=== PATIENT | male | born 1945 | race Caucasian/White ===

== ENCOUNTER 2022-07-11 07:10 | Observation (INO) ==
--- NOTE | 2022-05-29 16:28 | PAT Medication Instructions ---
Medication Instructions Date of Service May 29, 2022 Home Medications allopurinol 300 mg tablet 300 mg PO HS ascorbic acid (vitamin C) 500 mg tablet,extended release (Vitamin C ER) 500 mg PO QAM aspirin 81 mg tablet,delayed release 81 mg PO QAM cholecalciferol (vitamin D3) 25 mcg (1,000 unit) tablet (Vitamin D3) 25 mcg PO QAM coenzyme Q10 100 mg capsule (Co Q-10) 100 mg PO QAM cyanocobalamin (vitamin B-12) 500 mcg tablet 500 mcg PO QAM garlic 1,000 mg capsule 1,000 mg PO QAM djudejgitte-nirygbwzb-aoa C-Mn 500 mg-400 mg capsule (Glucosamine Chondroitin Maximum Strength) 1 cap PO QAM lactobacillus combination no.4 3 billion cell capsule (Probiotic) 3,000 mmu cells PO QAM lisinopril 40 mg tablet 40 mg PO HS metformin 500 mg tablet 500 mg PO BID metoprolol succinate 25 mg tablet,extended release 24 hr 25 mg PO QAM omega-3 fatty acids-fish oil 684 mg-1,200 mg capsule,delayed release 1 cap PO QAM simvastatin 40 mg tablet 40 mg PO HS zinc 25 mg tablet 25 mg PO QAM STOP taking 2 weeks before surgery coenzyme Q10 100 mg capsule (Co Q-10) 100 mg PO QAM garlic 1,000 mg capsule 1,000 mg PO QAM uiitrmllweh-plykrpdun-zyr C-Mn 500 mg-400 mg capsule (Glucosamine Chondroitin Maximum Strength) 1 cap PO QAM omega-3 fatty acids-fish oil 684 mg-1,200 mg capsule,delayed release 1 cap PO QAM DO NOT take the morning of surgery ascorbic acid (vitamin C) 500 mg tablet,extended release (Vitamin C ER) 500 mg PO QAM cholecalciferol (vitamin D3) 25 mcg (1,000 unit) tablet (Vitamin D3) 25 mcg PO QAM cyanocobalamin (vitamin B-12) 500 mcg tablet 500 mcg PO QAM lactobacillus combination no.4 3 billion cell capsule (Probiotic) 3,000 mmu cells PO QAM metformin 500 mg tablet 500 mg PO BID zinc 25 mg tablet 25 mg PO QAM Take morning of surgery With a small sip of water, OTHERWISE NOTHING TO EAT OR DRINK AFTER MIDNIGHT: aspirin 81 mg tablet,delayed release 81 mg PO QAM (unless directed otherwise by surgeon) metoprolol succinate 25 mg tablet,extended release 24 hr 25 mg PO QAM Take evening before surgery allopurinol 300 mg tablet 300 mg PO HS lisinopril 40 mg tablet 40 mg PO HS metformin 500 mg tablet 500 mg PO BID simvastatin 40 mg tablet 40 mg PO HS Other Notes If you have any questions please call us at [phone] or [phone] or [phone] or [phone]
--- NOTE | 2022-06-02 11:04 | Anesthesiology Consultation ---
Date of Service June 02, 2022 Assessment & Plan (1) Encounter for pre-operative examination: - check BSG am DOS. - awaiting PCP pre-op evaluation, [facility] 06/29. - awaiting cardiology pre-op evaluation, [facility] 07/04. Chart Review Chart Review: Pending: Refer to Additional Notes / Consult section and Patient seen in Pre Admission Testing Teaching & Discussion Pre-Anesthesia Teaching/Discussion Notes: Instructed NPO after midnight before surgery, except medications with 15 cc of water. Medication instructions provided according to the PAT guidelines. History Surgery Operation Date: 07/11/22 11:00 Proposed Procedures p Left Total Knee Arthroplasty - Michael Flor DO Height/Weight Height: 5 ft 9 in Weight: 92.986 kg Allergies Allergy/AdvReac Type Severity Reaction Status Date / Time chlorhexidine Allergy Unknown rash Verified 05/29/22 13:59 omeprazole Allergy Unknown itch Verified 05/29/22 13:59 Medications Home Medications Medication Instructions Recorded Confirmed Last Taken allopurinol 300 mg tablet 300 mg PO HS 05/29/22 05/29/22 Unknown ascorbic acid (vitamin C) 500 mg 500 mg PO QAM 05/29/22 05/29/22 Unknown tablet,extended release (Vitamin C ER) aspirin 81 mg tablet,delayed 81 mg PO QAM 05/29/22 05/29/22 Unknown release cholecalciferol (vitamin D3) 25 25 mcg PO QAM 05/29/22 05/29/22 Unknown mcg (1,000 unit) tablet (Vitamin D3) coenzyme Q10 100 mg capsule (Co 100 mg PO QAM 05/29/22 05/29/22 Unknown Q-10) cyanocobalamin (vitamin B-12) 500 500 mcg PO QAM 05/29/22 05/29/22 Unknown mcg tablet garlic 1,000 mg capsule 1,000 mg PO QAM 05/29/22 05/29/22 Unknown qesvdyovwra-tvtwqdgfz-baf C-Mn 500 1 cap PO QAM 05/29/22 05/29/22 Unknown mg-400 mg capsule (Glucosamine Chondroitin Maximum Strength) lactobacillus combination no.4 3 3,000 mmu cells PO QAM 05/29/22 05/29/22 Unknown billion cell capsule (Probiotic) lisinopril 40 mg tablet 40 mg PO HS 05/29/22 05/29/22 Unknown metformin 500 mg tablet 500 mg PO BID 05/29/22 05/29/22 Unknown metoprolol succinate 25 mg 25 mg PO QAM 05/29/22 05/29/22 Unknown tablet,extended release 24 hr omega-3 fatty acids-fish oil 684 1 cap PO QAM 05/29/22 05/29/22 Unknown mg-1,200 mg capsule,delayed release simvastatin 40 mg tablet 40 mg PO HS 05/29/22 05/29/22 Unknown zinc 25 mg tablet 25 mg PO QAM 05/29/22 05/29/22 Unknown Past Medical History Medical History (Updated 06/02/22 @ 11:10 by Danielle Raines PA-C) CAD (coronary artery disease) s/p 1 stent in 2011, follows with [facility] Diabetes mellitus, type 2 NIDDM Diverticular disease h/o diverticulitis last episode 2 yrs ago History of skin cancer L forearm and L side of neck, BCC and SCC, removed Hx of gout Hyperlipidemia Hypertension controlled, stable per pt Patient denies h/o stroke, seizures, heart failure, blood clots or blood transfusions. Exercise / Class Metabolic Activity II 4-5 Yardwork/Stairs/Walk up hill (denies CP or SOB with 1 FOS) Past Family History Family History (Updated 05/29/22 @ 14:10 by Hemalatha Collier RN) Mother Diabetes Past Surgical History Surgical History (Updated 05/29/22 @ 14:09 by Hemalatha Collier RN) History of appendectomy History of colonoscopy History of heart artery stent January 2012 > 1 stent History of tooth extraction Hx of inguinal hernia repair bilat Hx of umbilical hernia repair Past Anesthesia History No Hx of Anesthesia Complications and No Family Hx of Anesthesia Complications History of PONV No Hx of Motion Sickness and History of PONV (isolated episode, denies needing scop patch) Social History Smoking Status: Former smoker Do You Dip or Chew Tobacco: No Smoking End Date: 1979 Hx Alcohol Use: Yes alcohol intake frequency: holidays/special occasions only Hx Substance Use: No substance use type: does not use Review of Systems Occasional snoring, denies witnessed apneas. Occasional cough occasionally productive of clear mucus, ongoing over 1 yr ago, denies change or worsening, follows with PCP. Denies blood tinged sputum or hemoptysis, denied change or worsening. Patient denies chest pain, shortness of breath, dyspnea on exertion, reflux, fever, chills, wheezing, or palpitations. Physical Exam Vital Signs Vitals BP 153/81 P 72 TEMP 99.1 SP02 97% on RA RESP 18 Physical Full cervical extension range of motion without pain TMD 3.5 finger breadths Mallampati Score 2 Dentition: intact, several caps, several bridges-one upper front and another upper left side, implants upper left side; denies chipped or loose teeth Lungs: normal respiratory effort. Clear throughout to auscultation, no adventitious breath sounds Cardiac: regular rate and rhythm, no murmurs noted Carotid arteries: negative bruit bilat Lab Results Anesthesia Preop Results Results Anesthesia Widget: WBC 7.36 K/ul (4.8-10.8) 06/02/22 Hgb 15.5 g/dl (14.0-18.0) 06/02/22 Hct 47.6 % (40.1-51.0) 06/02/22 Plt 209 K/uL (130-400) 06/02/22 Na 140 mmol/L (136-145) 06/02/22 K 4.7 mmol/L (3.5-5.1) 06/02/22 Cl 103 mmol/L (98-107) 06/02/22 CO2 30 mmol/L (21-32) 06/02/22 BUN 14 mg/dl (6-23) 06/02/22 Creat 1.01 mg/dl (0.6-1.4) 06/02/22 Glucose Level 202 mg/dl (70-99(Fasting)) H 06/02/22 PT 11.1 Seconds (9.0-12.0) 06/02/22 PTT 27.9 Seconds (21.0-31.0) 06/02/22 INR 1.0 (0.9-1.1) 06/02/22 Urine Color Yellow 06/02/22 Urine Appearance Clear (Clear) 06/02/22 Urine pH 5.0 (4.5-7.5) 06/02/22 Urine Specific [place] 1.015 (1.000-1.030) 06/02/22 Urine Protein Negative (Negative) 06/02/22 Urine Glucose (UA) Negative (Negative) 06/02/22 Urine Ketones Negative (Negative) 06/02/22 Urine Blood 1+ (Negative) H 06/02/22 Urine Nitrite Negative (Negative) 06/02/22 Urine Bilirubin Negative (Negative) 06/02/22 Urine Urobilinogen Negative (Negative) 06/02/22 Urine Leukocyte Esterase Negative (Negative) 06/02/22 Urine WBC (Auto) 1-5 /hpf (0-5) 06/02/22 Urine RBC (Auto) 0-4 /hpf (0-4) 06/02/22 Urine Hyaline Casts (Auto) 0 /lpf (0-5) 06/02/22 Urine Epithelial Cells (Auto) 0-5 /lpf (0-5) 06/02/22 Urine Bacteria (Auto) Negative (Negative) 06/02/22 Blood Type B Negative 06/02/22 Antibody Screen NEGATIVE 06/02/22 Testing Laboratory Results A1c 05/26/22: 6.8% Electrocardiogram Date: 06/02/22 NSR, rate 63 bpm Chest X-Ray Date: 06/02/22 Lung volumes are normal. Lungs are clear. There is no pneumothorax or pleural effusion. Cardiac size is normal. Mediastinal contours are normal. There is no evidence for pulmonary edema. IMPRESSION: No acute cardiopulmonary findings. Stress Test Date: 05/15/22 Dobutamine MPHR 123% Negative for inducible ischemia EF 55-59% No significant valvular disease COVID-19 Risk Screen Screening Information COVID-19 Screen Date: 06/02/22 Exposure 21 Days Family/Household +COVID Last 21 Days: No Exposure 10 Days Any COVID Exposure Last 10 Days: No Symptoms Last 10 Days Experienced COVID Sx Last 10 Days: No + COVID 0-90 Days COVID + in Last 0-90 Days: No
--- NOTE | 2022-06-20 09:08 | History & Physical Report ---
Date of Service June 20, 2022 date of surgery: 07/11/22 Procedure: Left Total Knee Arthroplasty Surgeon: Michael Flor Assessment & Plan (1) Arthritis of knee, left: Plan: Risks and benefits of procedure discussed in detail today, patient would like to proceed with a Left total knee replacement at [facility] as scheduled. will obtain medical clearance prior to surgery as well as obtain PATs at [facility]. Will place on ASA 81mg po bid x 1 month post op, f/u 2 weeks post op for routine post-operative care and x-ray, sooner if having any problems. will make arrangements for HHPT at the time of discharge. At this point in time, has failed conservative measures and would like to proceed with surgical intervention. The risks and benefits have been discussed including, but not limited to, risk of infection, nerve injury, stiffness, loss of motion, failure to improve, etc. Reasonable outcomes and options of treatment were discussed. An explanation of appropriate alternatives to the procedure that may be advantageous were discussed and their risks and benefits, as well as the risks and benefits of not proceeding with treatment. I offered to answer any additional inquiries concerning the treatment involved. All the patient's questions were answered. The patient is agreeable, understanding of the treatment plan and alternatives, and wishes to proceed with the treatment plan. History of Present Illness Chief Complaint: left knee pain Primary Care Provider: Lisandro Yao MD Jayden is a pleasant 76-year-old male presents for preop evaluation prior to his left total knee replacement. He has been having pain in his knee for many years now which is gradually worsened, is now affecting his daily activities including walking standing using stairs. He has tried and failed previous cortisone injection as well as viscosupplementation without relief. He is also tried oral anti-inflammatory including ibuprofen and Motrin as well as meloxicam. At this point time is failed conservative measures like to proceed with left total knee replacement Allergies Allergy/AdvReac Type Severity Reaction Status Date / Time chlorhexidine Allergy Unknown rash Verified 05/29/22 13:59 omeprazole Allergy Unknown itch Verified 05/29/22 13:59 Home Medications Medication Instructions Recorded Confirmed Type allopurinol 300 mg tablet 300 mg PO HS 05/29/22 05/29/22 History ascorbic acid (vitamin C) 500 mg 500 mg PO QAM 05/29/22 05/29/22 History tablet,extended release (Vitamin C ER) aspirin 81 mg tablet,delayed 81 mg PO QAM 05/29/22 05/29/22 History release cholecalciferol (vitamin D3) 25 25 mcg PO QAM 05/29/22 05/29/22 History mcg (1,000 unit) tablet (Vitamin D3) coenzyme Q10 100 mg capsule (Co 100 mg PO QAM 05/29/22 05/29/22 History Q-10) cyanocobalamin (vitamin B-12) 500 500 mcg PO QAM 05/29/22 05/29/22 History mcg tablet garlic 1,000 mg capsule 1,000 mg PO QAM 05/29/22 05/29/22 History yxqkzqoarbi-djrkoiuuf-twl C-Mn 500 1 cap PO QAM 05/29/22 05/29/22 History mg-400 mg capsule (Glucosamine Chondroitin Maximum Strength) lactobacillus combination no.4 3 3,000 mmu cells PO QAM 05/29/22 05/29/22 History billion cell capsule (Probiotic) lisinopril 40 mg tablet 40 mg PO HS 05/29/22 05/29/22 History metformin 500 mg tablet 500 mg PO BID 05/29/22 05/29/22 History metoprolol succinate 25 mg 25 mg PO QAM 05/29/22 05/29/22 History tablet,extended release 24 hr omega-3 fatty acids-fish oil 684 1 cap PO QAM 05/29/22 05/29/22 History mg-1,200 mg capsule,delayed release simvastatin 40 mg tablet 40 mg PO HS 05/29/22 05/29/22 History zinc 25 mg tablet 25 mg PO QAM 05/29/22 05/29/22 History Past Med/Surg History Medical History CAD (coronary artery disease) s/p 1 stent in 2011, follows with [facility] cardiology Diabetes mellitus, type 2 NIDDM Diverticular disease h/o diverticulitis last episode 2 yrs ago History of skin cancer L forearm and L side of neck, BCC and SCC, removed Hx of gout Hyperlipidemia Hypertension controlled, stable per pt Surgical History History of appendectomy History of colonoscopy History of heart artery stent January 2012 > 1 stent History of tooth extraction Hx of inguinal hernia repair bilat Hx of umbilical hernia repair Family History Mother Diabetes Social History Smoking Status: Former smoker Second Hand Exposure: No; Hx Alcohol Use: Yes Hx Substance Use: No Preferred Language: Niuean Communication Ability: Effective Chief Maintenance Supervisor Required: No Beliefs That Will Affect Care: None Current Living Situation: Spouse Feels Safe at Home: Yes Assistive Devices: Glasses Review of Systems Review of Systems: All systems reviewed & are unremarkable except as noted in HPI & below Constitutional: no fever, no chills and no sweats Respiratory: no cough and no dyspnea Cardiovascular: no chest pain, no dyspnea and no orthopnea Gastrointestinal: no abdominal pain, no nausea and no vomiting Musculoskeletal: as per Subjective / HPI Physical Exam Physical Exam: HT: 5ft 9in WT: 93.8kg Constitutional: WD/WN, vitals as above no acute distress Respiratory: normal respiratory effort, lungs clear to auscultation no respiratory distress, no labored breathing and does not use accessory muscles Cardiovascular: RRR, no murmur, no edema Gastrointestinal (Abdomen): normal bowel sounds, soft, nontender, no hepatosplenomegaly Musculoskeletal: Knee: + knee abnormal to inspection (Left Knee: ), + effusion (+1 effusion), + limited ROM of knee (ROM 0/3/110), + knee ROM with crepitation, + joint line tenderness (medial joint line) and + Aleksandar's sign positive; no deformity, no skin erythema, no ecchymosis, no valgus laxity, no varus laxity, anterior drawer test negative, [place]'s sign negative and pivot shift test negative Results & Data Results & Data ([facility]) Diagnostic Findings Left Knee X-ray: left knee series confirm advanced degenerative changes to the left knee, greatest medial compartments and patellofemoral joint, showing joint space narrowing, osteophyte formation and subchondral sclerosis. no acute bony pathology noted.
[~2022-07-11 07:10] MED LIST: ACETAMINOPHEN 500 MG TAB PO SCH; BUPIVACAINE 0.5 % 5 MG/1 ML PF 10ML VIAL ONE; CeleBREX 200 MG CAP PO SCH; FAMOTIDINE 20 MG TAB PO SCH; GABAPENTIN 300 MG CAP PO SCH; LR 500ML BOLUS, THEN 15ML/HR IV SCH; METOCLOPRAMIDE HCL 10 MG TABLET PO SCH; ROPIVACAINE 0.5% 5 MG/ML 30 ML VIAL ONE; ROPIVACAINE 0.5% HCL/PF 150 MG, BUPIVACAINE 0.75% MPF 20 ML, EPINEPHrine 30MG/30ML (OR ... INFIL SCH; TRANEXAMIC ACID 1,000 MG **IV Intra-op IV SCH; TRANEXAMIC ACID 1,000 MG **IV Pre-op IV SCH; ceFAZolin 2000MG 2,000 MG/15 ML SYR IV SCH; dexAMETHasone 4 MG TAB PO SCH
--- NOTE | 2022-07-11 08:41 | History & Physical Bridge Note ---
Date of Service July 11, 2022 History & Physical Bridge Note I have examined the patient, reviewed the History & Physical and in the interval since the performance of the History & Physical I have noted the following changes of clinical significance: no changes noted
[2022-07-11] MEDS ORDERED: MIDAZOLAM HCL 1 MG/ML 2ML VIAL ONE (08:53)
[2022-07-11] MEDS ORDERED: LIDOCAINE 2% MPF LOCAL 5 ML VIAL INFIL ONE (09:19)
[2022-07-11] MEDS ORDERED: PROPOFOL IV EMULSION 10 MG/ML 20 ML VIAL IV ONE (09:19)
[2022-07-11] MEDS ORDERED: ORTHO JOINT ANESTHETIC ONE (09:26)
[2022-07-11] MEDS ORDERED: ePHEDrine sulfate 50 MG/ML AMP IV PRN (09:34)
[2022-07-11] MEDS ORDERED: ATROPINE SULFATE 0.1 MG/ML 10ML SYR IV PRN (09:34)
[2022-07-11] MEDS ORDERED: ONDANSETRON INJ 2 MG/ML 2 ML VIAL IV PRN ×2 (09:34→14:14)
[2022-07-11] MEDS ORDERED: HYDROmorphone INJ 1 MG/ML SYRINGE IV PRN (09:34)
[2022-07-11] MEDS ORDERED: KETAMINE 50 MG/5 ML SYRINGE ONE (10:08)
--- NOTE | 2022-07-11 10:56 | Operative Report ---
Post Operative Report Pre & Post Diagnosis Operation Date: 07/11/22 09:25 Pre-Op Diagnosis: Arthritis Left Knee Post-Op Diagnosis: Arthritis Left Knee I identified the patient and participated in the time-out.: Yes Procedure Operation Date: 07/11/22 09:25 Actual Procedures p Left Total Knee Arthroplasty(Left) utilizing [employer] journey 2 patient matched total knee arthroplasty size femur 6 tibia 5 polyten patella 32 barney- Michael Flor DO Surgeon Michael Flor DO [employer] Automation Engineer Timur GODWIN Estimated Blood Loss 5 Findings Consistent with Post-Op Diagnosis Patient presents with ongoing complaints of pain about the left knee with a severe end-stage tricompartmental degenerative joint disease varus alignment subchondral sclerosis marginal osteophytes subchondral cystic changes moderate to large effusion Specimens Bone and cartilage Drains Medium bore Hemovac Anesthesia Type MAC Spinal Regional Complications none Disposition Accompanied Patient To Recovery: No Disposition: Recovery Room Indications Patient presents with severe end-stage DJD left knee after failed attempted conservative management clinic physical therapy anti-inflammatories relative rest activity modification corticosteroid injection viscosupplementation the above intraoperative findings noted Description of Procedure After proper prepping and draping of the left lower extremity anterior midline incision was made over the region of the extensor extensor mechanism after meticulous hemostasis was obtained and maintained in subcutaneous tissues a medial parapatellar incision was made The patella was subluxed lateralward the medial lateral gutter were cleaned from any hypertrophic synovitis and scar tissue of the distal femoral block was placed and the distal femoral osteotomy cut was made subsequently the chamfers anterior and posterior osteotomy cuts were made utilizing the 4-in-1 block the tibia was subsequently subluxed anteriorward medial and ateral meniscal remnants were excised in their entirety remnants of the anterior and posterior cruciate ligaments were excised in their entirety excellent exposure of the proximal tibia was obtained the tibial osteotomy guide was placed on the proximal tibial osteotomy cut was made once again the knee was irrigated with copious amounts of sterile saline solution the patella was subsequently everted lateralward thickened scar tissue around the patella was removed the patella was subsequently cut utilizing a freehand technique and was drilled prepared for final preparation and placement of patella socially flexion-extension gaps were checked and the equal and symmetric trials were placed to the appropriate femoral and tibial trials with poly-spacer being placed for equal flexion and extension gaps and full range of motion including extension to 0 and flexion to 140 the trial components after having been taken to recovery range of motion was subsequently removed meticulous hemostasis was obtained and maintained subsequently a knee block injection of joint cocktail including ropivacaine 0.5% 150 mg. Bupivacaine 0.5% epinephrine 1-200,030 mL's toradol 30 mg dexamethasone 4 mg ketamine 10 mg clonidine 100 micrograms normal saline solution 30 mg was infiltrated into the soft tissues of the posterior knee medial lateral gutters and periosteal synovium special attention was paid to protect neurovascular structures at all times subsequently trial components having been removed the knee was irrigated with sterile saline solution. debris was removed the proximal tibia was subsequently prepared and was made ready for the placement of the tibial component tibial component was also cemented and tamped into position the femoral component was subsequently placed and cemented in the position the patellar component was subsequently cemented in position because hemostasis once again obtained and maintained wound having been thoroughly irrigated with debridement and debridement lavage was performed as well as a medial parapatellar incision closed with #1 Vicryl in interrupted fashion subcutaneous was closed with #2 Vicryl skin was closed with skin clips. PA-C was necessary for prepping and drapping as well as wound closure of deep fascia Sub cutaneous tissue and skin and was necessary for the case. A sterile compressive dressing was placed patient was taken to recovery in stable condition of report dictated by Chacho I attest to the content of the Intraoperative Record and any orders documented therein. Any exceptions are noted below.Due to the complex nature of the procedure, the entire surgery was performed with the operational assistance of Timur GODWIN. The food trades assistants, under direct supervision, was involved in the actual performance of all aspects of the surgical procedure including hemostasis, tissue retraction and incision, instrument management, patient positioning, and wound closure. I attest to the content of the Intraoperative Record and any orders documented therein. Any exceptions are noted below.
--- NOTE | 2022-07-11 12:37 | XRay Report ---
LEFT KNEE 2 VIEWS History: Left total knee arthroplasty. Degenerative arthritis. Postop. FINDINGS: The patient is status post a left total knee arthroplasty. The hardware is intact. No fract ure or dislocation. Surgical drains are in place. IMPRESSION: Left total knee arthroplasty. No evidence for hardware complication. ACT 112: Negative or not required by law. Electronically signed by: Karan Tate M.D. 07/11/2022 12:36 PM
--- NOTE | 2022-07-11 13:12 | Anesthesiology Progress Note ---
Date of Service July 11, 2022 Anesthesia Post Procedure Vital Signs Vital Signs: Temp Pulse Resp BP Pulse Ox O2 Del Method O2 Flow Rate 07/11/22 13:00 76 17 117/74 93 Room Air 07/11/22 12:30 66 16 113/71 93 Room Air 07/11/22 12:20 36.2 C L 74 18 126/73 93 Room Air 07/11/22 12:10 73 15 124/67 96 Room Air 07/11/22 12:00 78 18 125/70 96 Oxymask 5 07/11/22 11:50 78 15 118/70 96 Oxymask 5 07/11/22 11:43 36.1 C L 84 12 120/68 97 Oxymask 9 07/11/22 07:53 37.0 C 71 20 142/71 H 97 Room Air Transfer of Care Handoff Completed per policy Notes Mental Status: alert / awake / arousable Patient Amnestic to Procedure: Yes Nausea / Vomiting: adequately controlled Pain: adequately controlled Airway Patency, RR, SpO2: stable & adequate BP & HR: stable & adequate Hydration State: stable & adequate Neuraxial Anesthesia: was administered and sensory block is resolving Anesthetic Complications: no major complications apparent
[2022-07-11] MEDS ORDERED: bisacodyL 10 MG SUPP PR PRN (14:14)
[2022-07-11] MEDS ORDERED: NALOXONE HCL 0.4 MG/1 ML VIAL/CARP IV PRN (14:14)
[2022-07-11] MEDS ORDERED: HYDROmorphone INJ 0.5 MG/0.5 ML SYR IV PRN (14:14)
[2022-07-11] MEDS ORDERED: diphenhydrAMINE 50 MG/ML VIAL IV PRN (14:14)
[2022-07-11] MEDS ORDERED: MAGNESIUM HYDROXIDE SUSP 30 ML UDC PO PRN (14:14)
[2022-07-11] MEDS ORDERED: oxyCODONE HCL IR 5 MG TAB (IMMEDIATE RELEASE) PO PRN (14:14)
[2022-07-11] MEDS ORDERED: PHARMACY GLYCEMIC MGMT CONSULT PRN (14:14)
[2022-07-11] MEDS: SODIUM CHLORIDE 0.9% 1000ML 1,000 ML IV SCH (14:34)
[2022-07-11] MEDS: ACETAMINOPHEN 500 MG TAB PO SCH ×2 (14:55→21:42)
[2022-07-11] MEDS ORDERED: DEXTROSE 50% 50 ML SYRINGE IV PRN (15:00)
[2022-07-11] MEDS ORDERED: GLUCOSE 10 TAB/TUBE PO PRN (15:00)
[2022-07-11] MEDS ORDERED: GLUCAGON FOR INJ 1 MG VIAL IM PRN (15:00)
[2022-07-11] MEDS ORDERED: CARBOHYDRATES FOR HYPOGLYCEMIA PO PRN (15:00)
[2022-07-11] MEDS ORDERED: GLUCOSE 40% GEL 15 GM TUBE PO PRN (15:00)
--- NOTE | 2022-07-11 15:16 | Hospitalist Consultation ---
Date of Consultation July 11, 2022 Assessment & Plan (1) Status post total left knee replacement: - Pain management, bowel regimen and DVT ppx per the primary team - PT/OT consults, pt is planning on outpatient therapy with home therapy twice weekly after discharge - Follow am CBC to monitor for acute blood loss, last Hgb was 15.5 (2) CAD (coronary artery disease): (3) Hyperlipidemia: (4) Hypertension: - May continue metoprolol succinate 25 mg PO daily, HOLD lisinopril 40 mg due to borderline BP, resume when able - cont asa 81 mg (5) Diabetes mellitus, type 2: - ISS with accuchecks achs, glycemic pharmacy consulted for assistance - Last A1C was 6.8 on 05/26/22 - HH/DM diet allowed DVT ppx: - teds, scds, aspirin 81 BID as per the primary team CODE: FULL Dispo: From home. Thank you for involving us in the care of Mr. Hardwick. Please do not hesitate to call with questions or concerns. At this time medicine service will follow along. Supervising Physician Co-Signing Physician Notes Pt is a 76 y/o M with hx of CAD s/p stent, HTN, DMII, Gout admitted for L TKA -Pt underwent L TKA on 07/11/22 PE: NAD, well developed Lungs: CTA, no wheezing or crackles Cardiac: Normal S1/S2, no murmur Abd: NT, ND, soft MSK: able to move his toes Psych: AAOx3, normal affect A/P: L TKA: -POD # 0 -pt is recovering well -VSS -pain management per ortho -OT/PT -monitor cbc and BMP HTN: -Bp is at low normal range thus will hold Lisinopril but continue metoprolol DMII: -hold oral meds -ISS Other chronic conditions: plan as above Agree with A/P by Aminata Parra PA-C History of Present Illness Reason for Consultation: Post op med management Requesting Physician: Dr. Flor Attending Physician: Michael Flor DO History of Present Illness This is a 76 yo M with PMHx of CAD s/p CABG x 2 vessel in January 2021, LA planement to LAD, HTN, HLD, NIDDM, who presented for elective Left knee arthroplasty by Dr. Flor. Pt reports surgery went well. He does not have full function to wiggle his toes on the left yet, and states dullness to light touch on his foot is present. No pain currently. Last bowel movement was yesterday at 6:30 PM. He has not yet urinated status post surgery. Patient has tolerated lunch without any difficulty, no abdominal complaints, nausea, vomiting. Lovely, is present at beside. Educated the patient on not taking his home medications while here, we will use medications from her pharmacy and he expressed understanding. Patient anticipates going home within 1 to 2 days with home health therapy twice a week. Allergies Allergy/AdvReac Type Severity Reaction Status Date / Time omeprazole Allergy Mild itch Verified 07/11/22 07:49 chlorhexidine Allergy Unknown rash Verified 07/11/22 07:49 Home Medications Medication Instructions Recorded Confirmed Type allopurinol 300 mg tablet 300 mg PO HS 05/29/22 07/11/22 History ascorbic acid (vitamin C) 500 mg 500 mg PO QAM 05/29/22 07/11/22 History tablet,extended release (Vitamin C ER) aspirin 81 mg tablet,delayed 81 mg PO QAM 05/29/22 07/11/22 History release cholecalciferol (vitamin D3) 25 25 mcg PO QAM 05/29/22 07/11/22 History mcg (1,000 unit) tablet (Vitamin D3) coenzyme Q10 100 mg capsule (Co 100 mg PO QAM 05/29/22 07/11/22 History Q-10) cyanocobalamin (vitamin B-12) 500 500 mcg PO QAM 05/29/22 07/11/22 History mcg tablet garlic 1,000 mg capsule 1,000 mg PO QAM 05/29/22 07/11/22 History royrhgoakvs-lbtcqkoua-czo C-Mn 500 1 cap PO QAM 05/29/22 07/11/22 History mg-400 mg capsule (Glucosamine Chondroitin Maximum Strength) lactobacillus combination no.4 3 3,000 mmu cells PO QAM 05/29/22 07/11/22 History billion cell capsule (Probiotic) lisinopril 40 mg tablet 40 mg PO HS 05/29/22 07/11/22 History metformin 500 mg tablet 500 mg PO BID 05/29/22 07/11/22 History metoprolol succinate 25 mg 25 mg PO QAM 05/29/22 07/11/22 History tablet,extended release 24 hr omega-3 fatty acids-fish oil 684 1 cap PO QAM 05/29/22 07/11/22 History mg-1,200 mg capsule,delayed release simvastatin 40 mg tablet 40 mg PO HS 05/29/22 07/11/22 History zinc 25 mg tablet 25 mg PO QAM 05/29/22 07/11/22 History Patient History Medical History (Updated 07/11/22 @ 15:15 by Aminata Parra PA-C) CAD (coronary artery disease) s/p 1 stent in 2011, follows with [facility] cardiology Diabetes mellitus, type 2 NIDDM Diverticular disease h/o diverticulitis last episode 2 yrs ago History of skin cancer L forearm and L side of neck, BCC and SCC, removed Hx of gout Hyperlipidemia Hypertension controlled, stable per pt Surgical History (Updated 07/11/22 @ 15:15 by Aminata Parra PA-C) History of appendectomy History of colonoscopy History of heart artery stent January 2012 > 1 stent History of tooth extraction Hx of inguinal hernia repair bilat Hx of umbilical hernia repair Family History Mother Diabetes Social History Smoking Status: Former smoker Smoking End Date: 1979; Second Hand Exposure: No; Do You Dip or Chew Tobacco: No; Tobacco Cessation Education Requested by Patient: No Hx Alcohol Use: Yes Hx Substance Use: No Preferred Language: Yi Communication Ability: Effective [employer] Manager Required: No Beliefs That Will Affect Care: None Current Living Situation: Spouse Other Information That Helps Us Care for You: No Feels Safe at Home: Yes Safety Concerns: Feels Safe At This Time Assistive Devices: Glasses Review of Systems Review of Systems: Constitutional: No fever, sweats or chills Eyes: No diplopia, no worsening or blurred vision ENT: normal hearing, no trouble swallowing Respiratory: No cough, sputum, dyspnea at rest or on exertion Cardiovascular: No chest pain, tightness or palpitations Abdomen: No pain, nausea, vomiting, diarrhea or constipation Musculoskeletal: No joint pain, calf pain, swelling Neurologic: As per HPI, no right-sided weakness, numbness/tingling, or balance problems Psychiatric: No anxiety or depression Skin: No rash or itch Physical Exam Physical Exam: General: awake, alert, no apparent distress Head: Normocephalic, atraumatic ENT: PERRL, EOMI, no pharyngeal exudate, mucous membranes moist Chest: Clear to auscultation, on room air, no adventitious breath sounds Cardiac: Regular rate and rhythm, no murmur, no JVD, normal peripheral pulses, good capillary refill Abdominal: NABS x 4 quadrants, soft, nondistended, nontender to palpation, no rebound or guarding Extremities: Left lower extremity with Matthieu wrap in place, ice pack, vacuum in place. Otherwise normal inspection, no peripheral edema or erythema, calfs nontender to palpation Psych: Normal mood and affect Neuro: AAO x 3, strength intact bilaterally and rated 5/5, no motor deficits, speech is clear, no peripheral sensory deficits Results & Data Results & Data ([facility]) Vital Signs (Past 12 Hours) Vital Signs Temp Pulse Pulse Resp BP Pulse Ox O2 Del Method 07/11/22 14:14 36.6 C 83 18 109/64 94 Room Air 07/11/22 14:00 81 17 124/67 94 Room Air 07/11/22 13:30 71 16 127/79 95 Room Air 07/11/22 13:00 76 17 117/74 93 Room Air 07/11/22 12:30 66 16 113/71 93 Room Air 07/11/22 12:20 36.2 C L 74 18 126/73 93 Room Air 07/11/22 12:10 73 15 124/67 96 Room Air 07/11/22 12:00 78 18 125/70 96 Oxymask 07/11/22 11:50 78 15 118/70 96 Oxymask 07/11/22 11:43 36.1 C L 84 12 120/68 97 Oxymask 07/11/22 07:53 37.0 C 71 20 142/71 H 97 Room Air O2 Flow Rate 07/11/22 14:14 07/11/22 14:00 07/11/22 13:30 07/11/22 13:00 07/11/22 12:30 07/11/22 12:20 07/11/22 12:10 07/11/22 12:00 5 07/11/22 11:50 5 07/11/22 11:43 9 07/11/22 07:53
[2022-07-11] MEDS: INSULIN ASPART PER UNIT SC SCH ×2 (18:02→21:23)
[2022-07-11] MEDS: ceFAZolin 2000MG 2,000 MG/15 ML SYR IV SCH (18:06)
[2022-07-11] MEDS ORDERED: LANTUS PER UNIT CHARGE SQ SCH (21:00)
[2022-07-11] MEDS ORDERED: allopurinoL 300 MG TAB PO SCH (21:00)
[2022-07-11] MEDS ORDERED: metFORMIN HCL 500 MG TAB PO SCH (21:00)
[2022-07-11] MEDS ORDERED: SIMVASTATIN 40 MG TAB PO SCH (21:00)
[2022-07-11] MEDS ORDERED: lisinopril 40 MG TAB PO SCH (21:00)
[2022-07-11] MEDS ORDERED: SENNA 8.6 MG TAB PO SCH (21:00)
[2022-07-11] MEDS: DOCUSATE SODIUM 100 MG CAP PO SCH (21:17)
[2022-07-11] MEDS: ASPIRIN 81 MG ECTAB PO SCH (21:17)
[2022-07-12] MEDS: ceFAZolin 2000MG 2,000 MG/15 ML SYR IV SCH (01:36)
[2022-07-12] MEDS: SODIUM CHLORIDE 0.9% 1000ML 1,000 ML IV SCH (01:38)
[2022-07-12] MEDS: ACETAMINOPHEN 500 MG TAB PO SCH (05:39)
[2022-07-12 07:05] LABS: Hematocrit (blood only) 41.1 % (40.1-51.0); Hemoglobin 13.6 g/dl (14.0-18.0); Mean Corpuscular Hemoglobin 30.5 pg (25.0-34.0); Mean Corpuscular Hgb Conc 33.1 g/dL (32.0-36.0); Mean Corpuscular Volume 92.2 fL (80.0-100.0); Mean Platelet Volume 11.5 fL (9.4-12.4); Platelet Count 211 K/uL (130-400); RDW Coefficient of Variation 13.6 % (11.5-14.5); RDW Standard Deviation 46.3 fL (36.4-46.3); Red Blood Count 4.46 M/uL (4.63-6.08); White Blood Count 19.02 K/ul (4.8-10.8)
[2022-07-12 07:29] LABS: BUN Creatinine Ratio 17.1 (10-20); Calcium 8.7 mg/dl (8.5-10.1); Creatinine Clr Calc Pharmacy 64.7 ml/min; Est GFR (African American) 74.9 ml/min; Est GFR (Non-African American) 64.6 ml/min; Potassium 4.2 mmol/L (3.5-5.1)
[2022-07-12] MEDS ORDERED: ADVANCED PROBIOTIC 1250 MG CAPSULE PO SCH (07:30)
[2022-07-12] MEDS: DOCUSATE SODIUM 100 MG CAP PO SCH (08:02)
[2022-07-12] MEDS: ASPIRIN 81 MG ECTAB PO SCH (08:02)
--- NOTE | 2022-07-12 08:51 | Orthopedic Progress Note ---
Date of Service July 12, 2022 Assessment & Plan (1) Arthritis of knee, left: Plan: Postop day 1 status post left total knee arthroplasty PT OT protocols. Weightbearing as tolerated. DVT prophylaxis-aspirin p.o. twice daily, SCDs, CARLOS davis. Pain management as written. DC planning-patient is planning for home health services upon discharge. Plan for discharge to home today.. Admission and Anticipated Discharge Date Admission Date: July 11, 2022 Subjective Postop day 1 Patient sitting in his chair at the bedside. Patient states he is having some mild discomfort around the knee with noted swelling which she expected. Pain currently appears under control. Patient denies any shortness of breath, chest pain, lightheadedness. Physical Exam Physical Exam: Dressings are clean, dry, and intact. Calves are soft nontender. Neurovascular is intact. Toes are mobile. He has good dorsiflexion and plantarflexion of the left foot. Hemovac drainage was approximate 25 mL from the previous shift. Results & Data ([facility]) Vital Signs (Past 12 Hours) Vital Signs Temp Pulse Resp BP BP Pulse Ox O2 Del Method 07/12/22 07:41 36.5 C 71 16 155/89 H 97 Room Air 07/12/22 03:00 36.5 C 60 18 128/75 95 Room Air 07/11/22 23:17 95 H 18 96 Room Air 07/11/22 22:38 36.6 C 97 H 16 113/83 93 Room Air 07/11/22 21:02 36.7 C 104 H 18 122/72 93 Room Air Laboratory Results Laboratory Results WBC 19.02 K/ul (4.8-10.8) H 07/12/22 06:45 RBC 4.46 M/uL (4.63-6.08) L 07/12/22 06:45 Hgb 13.6 g/dl (14.0-18.0) L 07/12/22 06:45 Hct 41.1 % (40.1-51.0) 07/12/22 06:45 MCV 92.2 fL (80.0-100.0) 07/12/22 06:45 MCH 30.5 pg (25.0-34.0) 07/12/22 06:45 MCHC 33.1 g/dL (32.0-36.0) 07/12/22 06:45 RDW Std Deviation 46.3 fL (36.4-46.3) 07/12/22 06:45 RDW Coeff of Ulices 13.6 % (11.5-14.5) 07/12/22 06:45 Plt Count 211 K/uL (130-400) 07/12/22 06:45 MPV 11.5 fL (9.4-12.4) 07/12/22 06:45 Sodium 139 mmol/L (136-145) 07/12/22 06:45 Potassium 4.2 mmol/L (3.5-5.1) 07/12/22 06:45 Chloride 105 mmol/L (98-107) 07/12/22 06:45 Carbon Dioxide 26 mmol/L (21-32) 07/12/22 06:45 Anion Gap 8 (3-11) 07/12/22 06:45 BUN 19 mg/dl (6-23) 07/12/22 06:45 Creatinine 1.11 mg/dl (0.6-1.4) 07/12/22 06:45 Est Cr Clr Drug Dosing 64.7 ml/min 07/12/22 06:45 Est GFR ( Amer) 74.9 ml/min 07/12/22 06:45 Est GFR (Non-Af Amer) 64.6 ml/min 07/12/22 06:45 BUN/Creatinine Ratio 17.1 (10-20) 07/12/22 06:45 Glucose 143 mg/dl (70-99(Fasting)) H 07/12/22 06:45 POC Glucose 117 mg/dl (70-99) H 07/12/22 08:06 Calcium 8.7 mg/dl (8.5-10.1) 07/12/22 06:45 SARS-CoV-2, RNA, NAAT NEGATIVE (NEGATIVE) 07/11/22 Unknown Impressions Knee X-Ray 07/11/22 11:51 LEFT KNEE 2 VIEWS History: Left total knee arthroplasty. Degenerative arthritis. Postop. FINDINGS: The patient is status post a left total knee arthroplasty. The hardware is intact. No fracture or dislocation. Surgical drains are in place. IMPRESSION: Left total knee arthroplasty. No evidence for hardware complication. ACT 112: Negative or not required by law. Electronically signed by: Karan Tate M.D. 07/11/2022 12:36 PM
[2022-07-12] MEDS ORDERED: CYANOCOBALAMIN (B-12) 500 MCG TABLET PO SCH (09:00)
[2022-07-12] MEDS ORDERED: ASCORBIC ACID 500 MG TAB PO SCH (09:00)
[2022-07-12] MEDS ORDERED: METOPROLOL SUCC 25MG EXT REL TAB PO SCH (09:00)
[2022-07-12] MEDS ORDERED: NON-FORMULARY MEDICATION (Coenzyme Q10 [Co Q-10] 100 mg Capsule) PO SCH (09:00)
[2022-07-12] MEDS ORDERED: CHOLECALCIFEROL 1,000 UNITS 25 MCG TAB PO SCH (09:00)
[2022-07-12] MEDS ORDERED: ZINC SULFATE 220 MG CAPSULE PO SCH (09:00)
[2022-07-12] MEDS ORDERED: MULTIVITAMIN TAB PO SCH (09:00)
[2022-07-12] MEDS ORDERED: metFORMIN HCL 500 MG TAB PO SCH (09:00)
[2022-07-12] MEDS: INSULIN ASPART PER UNIT SC SCH (09:49)
--- NOTE | 2022-07-12 11:22 | Pharmacy Report ---
Pharmacy Glycemic Short Note 2 - Date of Service July 12, 2022 - Glycemic Short BSG Results (Last 24 hours): 07/11/22 07/11/22 07/11/22 11:48 16:58 20:46 Glucose POC Glucose 145 H 209 H 185 H 07/12/22 07/12/22 06:45 08:06 Glucose 143 H POC Glucose 117 H OUTPATIENT ANTIDIABETIC REGIMEN: * Metformin 500 mg PO BID ASSESSMENT: * 76 y/o M admitted for left total knee arthroplasty yesterday. Today is post op day 1. Patient has history of Type 2 diabetes managed at home only on oral Metformin. * Metformin was held yesterday since he was post op. It was resumed with breakfast this morning since renal function is good and patient has been eating his meals. * Patient received Dexamethasone 8 mg PO one dose yesterday during surgery. This caused elevated blood sugars later in the evening yesterday. * He was started on Novolog with stress of 2 at dinner. With continued high sugars, this was tightened slightly at HS. * Additionally one dose of Lantus based on stress of 1 was given at HS. * Fasting BSG at goal this morning (117 mg/dl). * With resumption of Metformin today morning, novolog carb ratio was loosened with breakfast and now removed for lunch. PLAN FOR INPATIENT GLYCEMIC CONTROL: * Metformin 500 mg PO BID with meals resumed this morning with breakfast * Basal insulin * Lantus 10 units SQ x1 dose last night * Bolus insulin * NovoLog per scale ACHS or Q6hrs while NPO * Goal Range: Low 110 mg/dL - High 140 mg/dL * Correction Factor: 20 mg/dL/unit * Nutritional / Prandial insulin per carb ratio: none
--- NOTE | 2022-07-12 12:35 | Hospitalist Progress Note ---
Date of Service July 12, 2022 Assessment & Plan (1) Status post total left knee replacement: Plan: - Pain management, bowel regimen and DVT ppx per the primary team - PT/OT consults, pt is planning on outpatient therapy with home therapy twice weekly after discharge (2) CAD (coronary artery disease): Plan: Continue aspirin (3) Hyperlipidemia: Plan: Continue simvastatin (4) Hypertension: Plan: Continue on metoprolol and lisinopril. (5) Diabetes mellitus, type 2: Plan: Is Sunday 6.8. Continue on metformin 500 twice daily at discharge. DVT ppx: - teds, scds, aspirin 81 BID as per the primary team CODE: FULL Admission and Anticipated Discharge Date Admission Date: July 11, 2022 Subjective Patient seen and examined at bedside. He reports that he is feeling better. He is up and walking to the bathroom and back. He denies any fever, chills, chest pain, shortness of breath, abdominal pain or urinary symptoms. Review of Systems Review of Systems: All systems reviewed & are unremarkable except as noted in Subjective Physical Exam Physical Exam: Constitutional: WD/WN, vitals as above, NAD, sitting up in bed, pleasant, conversing easily Respiratory: normal respiratory effort, lungs clear to auscultation, no wheeze, rales, rhonchi. Normal insp/exp effort, no accessory muscle use Cardiovascular: RRR, no murmur, no edema Vessels: no JVD or carotid bruit Chest: normal inspection of chest Abdomen: normal bowel sounds, soft, nontender, no hepatosplenomegaly Musculoskeletal: Left knee with bandage in place; clean dry intact. Skin: no rashes, warm and dry normal turgor Neurologic: PERRL, EOMI, accommodation nl, no face palsy, no dysarthria CN's II- XI intact bilaterally and moves all extremities Psychiatric: A+Ox3, euthymic affect Lymphatic: no cervical or axillary lymphadenopathy : deferred Results & Data Results & Data ([facility]) Vital Signs (Past 12 Hours) Vital Signs Temp Pulse Pulse Resp BP BP Pulse Ox 07/12/22 10:15 36.5 C 81 71 16 155/89 H 128/75 97 07/12/22 07:41 36.5 C 71 16 155/89 H 97 07/12/22 03:00 36.5 C 60 18 128/75 95 O2 Del Method 07/12/22 10:15 07/12/22 07:41 Room Air 07/12/22 03:00 Room Air Laboratory Results Laboratory Results WBC 19.02 K/ul (4.8-10.8) H 07/12/22 06:45 RBC 4.46 M/uL (4.63-6.08) L 07/12/22 06:45 Hgb 13.6 g/dl (14.0-18.0) L 07/12/22 06:45 Hct 41.1 % (40.1-51.0) 07/12/22 06:45 MCV 92.2 fL (80.0-100.0) 07/12/22 06:45 MCH 30.5 pg (25.0-34.0) 07/12/22 06:45 MCHC 33.1 g/dL (32.0-36.0) 07/12/22 06:45 RDW Std Deviation 46.3 fL (36.4-46.3) 07/12/22 06:45 RDW Coeff of Ulices 13.6 % (11.5-14.5) 07/12/22 06:45 Plt Count 211 K/uL (130-400) 07/12/22 06:45 MPV 11.5 fL (9.4-12.4) 07/12/22 06:45 Sodium 139 mmol/L (136-145) 07/12/22 06:45 Potassium 4.2 mmol/L (3.5-5.1) 07/12/22 06:45 Chloride 105 mmol/L (98-107) 07/12/22 06:45 Carbon Dioxide 26 mmol/L (21-32) 07/12/22 06:45 Anion Gap 8 (3-11) 07/12/22 06:45 BUN 19 mg/dl (6-23) 07/12/22 06:45 Creatinine 1.11 mg/dl (0.6-1.4) 07/12/22 06:45 Est Cr Clr Drug Dosing 64.7 ml/min 07/12/22 06:45 Est GFR ( Amer) 74.9 ml/min 07/12/22 06:45 Est GFR (Non-Af Amer) 64.6 ml/min 07/12/22 06:45 BUN/Creatinine Ratio 17.1 (10-20) 07/12/22 06:45 Glucose 143 mg/dl (70-99(Fasting)) H 07/12/22 06:45 POC Glucose 117 mg/dl (70-99) H 07/12/22 08:06 Calcium 8.7 mg/dl (8.5-10.1) 07/12/22 06:45 SARS-CoV-2, RNA, NAAT NEGATIVE (NEGATIVE) 07/11/22 Unknown Impressions Knee X-Ray 07/11/22 11:51 LEFT KNEE 2 VIEWS History: Left total knee arthroplasty. Degenerative arthritis. Postop. FINDINGS: The patient is status post a left total knee arthroplasty. The hardware is intact. No fracture or dislocation. Surgical drains are in place. IMPRESSION: Left total knee arthroplasty. No evidence for hardware complication. ACT 112: Negative or not required by law. Electronically signed by: Karan Tate M.D. 07/11/2022 12:36 PM
--- NOTE | 2022-07-13 12:02 | Discharge Summary ---
Date of Service July 13, 2022 Admission HPI Per Admitting Provider Jayden is a pleasant 76-year-old male presents for preop evaluation prior to his left total knee replacement. He has been having pain in his knee for many years now which is gradually worsened, is now affecting his daily activities including walking standing using stairs. He has tried and failed previous cortisone injection as well as viscosupplementation without relief. He is also tried oral anti-inflammatory including ibuprofen and Motrin as well as meloxicam. At this point time is failed conservative measures like to proceed with left total knee replacement Admission Exam Per Admitting Provider Physical Exam: HT: 5ft 9in WT: 93.8kg Constitutional: WD/WN, vitals as above no acute distress Respiratory: normal respiratory effort, lungs clear to auscultation no respiratory distress, no labored breathing and does not use accessory muscles Cardiovascular: RRR, no murmur, no edema Gastrointestinal (Abdomen): normal bowel sounds, soft, nontender, no h epatosplenomegaly Musculoskeletal: Knee: + knee abnormal to inspection (Left Knee: ), + effusion (+1 effusion), + limited ROM of knee (ROM 0/3/110), + knee ROM with crepitation, + joint line tenderness (medial joint line) and + Aleksandar's sign positive; no deformity, no skin erythema, no ecchymosis, no valgus laxity, no varus laxity, anterior drawer test negative, Columba's sign negative and pivot shift test negative Principal Diagnosis Left Knee Osteoarthritis Discharge Data Allergies Allergy/AdvReac Type Severity Reaction Status Date / Time omeprazole Allergy Mild itch Verified 07/11/22 07:49 chlorhexidine Allergy Unknown rash Verified 07/11/22 07:49 Consultations 07/10/22 08:43 Consult Hospitalist Routine Procedures Performed Operation Date: 07/11/22 09:25 Actual Procedures p Left Total Knee Arthroplasty(Left) - Michael Flor DO Ordered Studies 07/11/22 05:00 US - OR guided needle placemen Routine Hospital Course (1) Arthritis of knee, left: atient:JAYDEN ROJAS Admit Date:07/11/22 MR#:[id number] Att Phy:Michael Flor,D.OMargarito Acct ID:[id number] Jennie Phy:Niyah Bonilla DO Date:1945 Fam Phy: Age:76 Location:3N Sex:M Room/Bed:[facility] cc: ~ *NOTICE TO RECEIVING LIBERTARIAN/AGENCY This information is strictly Confidential and protected under [place] law. [place] law prohibits you from making any further disclosure of this information unless further disclosure is expressly permitted by the written consent of the person to whom it pertains or is authorized by law. A general authorization for the release of medical or other information is not sufficient for this purpose. Hospital accepts no responsibility if the information is made available to any other person, INCLUDING THE PATIENT. Date of Service July 12, 2022 Assessment & Plan (1) Arthritis of knee, left: Plan: Postop day 1 status post left total knee arthroplasty PT OT protocols. Weightbearing as tolerated. DVT prophylaxis-aspirin p.o. twice daily, SCDCARLOS jacobs. Pain management as written. DC planning-patient is planning for home health services upon discharge. Plan for discharge to home today.. Admission and Anticipated Discharge Date Admission Date: July 11, 2022 Subjective Postop day 1 Patient sitting in his chair at the bedside. Patient states he is having some mild discomfort around the knee with noted swelling which she expected. Pain currently appears under control. Patient denies any shortness of breath, chest pain, lightheadedness. Physical Exam Physical Exam: Dressings are clean, dry, and intact. Calves are soft n ontender. Neurovascular is intact. Toes are mobile. He has good dorsiflexion and plantarflexion of the left foot. Hemovac drainage was approximate 25 mL from the previous shift. Results & Data ([facility]) Vital Signs (Past 12 Hours) Vital Signs Temp Pulse Resp BP BP Pulse Ox O2 Del Method 07/12/22 07:41 36.5 C 71 16 155/89 H 97 Room Air 07/12/22 03:00 36.5 C 60 18 128/75 95 Room Air 07/11/22 23:17 95 H 18 96 Room Air 07/11/22 22:38 36.6 C 97 H 16 113/83 93 Room Air 07/11/22 21:02 36.7 C 104 H 18 122/72 93 Room Air Laboratory Results Laboratory Results WBC 19.02 K/ul (4.8-10.8) H 07/12/22 06:45 RBC 4.46 M/uL (4.63-6.08) L 07/12/22 06:45 Hgb 13.6 g/dl (14.0-18.0) L 07/12/22 06:45 Hct 41.1 % (40.1-51.0) 07/12/22 06:45 MCV 92.2 fL (80.0-100.0) 07/12/22 06:45 MCH 30.5 pg (25.0-34.0) 07/12/22 06:45 MCHC 33.1 g/dL (32.0-36.0) 07/12/22 06:45 RDW Std Deviation 46.3 fL (36.4-46.3) 07/12/22 06:45 RDW Coeff of Ulices 13.6 % (11.5-14.5) 07/12/22 06:45 Plt Count 211 K/uL (130-400) 07/12/22 06:45 MPV 11.5 fL (9.4-12.4) 07/12/22 06:45 D Sodium 139 mmol/L (136-145) 07/12/22 06:45 Potassium 4.2 mmol/L (3.5-5.1) 07/12/22 06:45 Chloride 105 mmol/L (98-107) 07/12/22 06:45 Carbon Dioxide 26 mmol/L (21-32) 07/12/22 06:45 Anion Gap 8 (3-11) 07/12/22 06:45 BUN 19 mg/dl (6-23) 07/12/22 06:45 Creatinine 1.11 mg/dl (0.6-1.4) 07/12/22 06:45 Est Cr Clr Drug Dosing 64.7 ml/min 07/12/22 06:45 Est GFR ( Amer) 74.9 ml/min 07/12/22 06:45 Est GFR (Non-Af Amer) 64.6 ml/min 07/12/22 06:45 BUN/Creatinine Ratio 17.1 (10-20) 07/12/22 06:45 Glucose 143 mg/dl (70-99(Fasting)) H 07/12/22 06:45 POC Glucose 117 mg/dl (70-99) H 07/12/22 08:06 Calcium 8.7 mg/dl (8.5-10.1) 07/12/22 06:45 SARS-CoV-2, RNA, NAAT NEGATIVE (NEGATIVE) 07/11/22 Unknown Impressions Knee X-Ray 07/11/22 11:51 LEFT KNEE 2 VIEWS History: Left total knee arthroplasty. Degenerative arthritis. Postop. FINDINGS: The patient is status post a left total knee arthroplasty. The hardware is intact. No fracture or dislocation. Surgical drains are in place. IMPRESSION: Left total knee arthroplasty. No evidence for hardware complication. ACT 112: Negative or not required by law. Electronically signed by: Karan Tate M.D. 07/11/2022 12:36 PM Signed By: <Electronically signed by Timur Banuelos PA-C> 07/12/22 0900 <Electronically signed by Marty Carrillo MD> 07/12/22 1000 Created:07/12/22 0848 Total Time Total Time Spent Total Time Spent (In Minutes): 5 Discharge Plan Discharge Items Patient Disposition: Home - Home Health Services Reason For Visit: Arthritis Left Knee Discharge Diagnosis: Left Knee Osteoarthritis Activity: Per Instructions section Weightbearing: Left weightbearing Weightbearing Comment: as tolerated with walker Non-emergency contact: Surgeon Call non-emergency contact if: you have any medication questions, your pain is not controlled, your temperature is above 101.5, your wound has increased redness and your wound has increased drainage Follow-up/Referrals: Michael Flor DO [Surgeon] - (Please follow up with Dr Flor or his PA in 2 weeks from the day of surgery for your first post operative visit.) Niyah Bonilla DO [Primary Care Provider] - Diet: Carb Consistent or DM2 Addtl Attending Provider Instructions: ACTIVITY RECOMMENDATIONS: SELF CARE INSTRUCTIONS AFTER TOTAL KNEE REPLACEMENT A. You may need to continue a physical therapy program after discharge from the hospital. There are several options available to you. Your doctor will assist you in selecting the best one for you. 1. An out-patient facility 2 to 3 times a week for therapy or home therapy. 2. Continue working on all exercises taught to you in the hospital. Your goals should be to increase bending of your knee to 90 degrees and beyond and to fully straighten your knee. B. You may progress at your own pace from walking with a walker or crutches to a cane; then to no assistive devices. C. Make walking a part of your daily routine. Be up as much as comfortable with rest periods throughout the day. Rest with leg elevation is very important. Use the ice wrap frequently for the first 3-4 weeks. D. There are no restrictions on activities. You may ride in a car, shop, participate in chief technical officer and all social activities. E. Wear the long elastic stockings (CARLOS hose) 20 hours a day for 2 weeks after surgery. They can be removed several times a day for laundering and for a bath. F. You may shower, no tub baths until cleared by your doctor. SPECIAL CARE INSTRUCTIONS: VERY IMPORTANT TO READ AND REVIEW A. There are a few signs you need to watch for after you are home. Call [facility] [place] if you notice any of the followin. Increased severe knee pain. Some pain is expected especially when you exercise. 2. Increased swelling in your leg or knee; pain or swelling of the calf muscle in either lower leg. 3. Any fluid drainage from the incision. 4. Shortness of breath or chest pain. B. Please call [facility] at if you have any concerns or questions about your operation or recovery. The doctor or his nurse will return your call promptly. C. You must take antibiotics before dental work, bladder, bowel or other surgery. Your doctor will provide you with a permanent care to carry describing this precaution. IMPORTANT: * REMEMBER TO TAKE ASPIRIN, 81 MG, TWICE DAILY FOR 4 WEEKS UNLESS OTHERWISE DIRECTED. THIS IS YOUR BLOOD THINNER. * HIGH RISK PATIENTS MAY BE PRESCRIBED A STRONGER BLOOD THINNER. THIS WILL BE PROVIDED AT DISCHARGE. * CALL IF INCREASED PAIN, REDNESS, DRAINAGE OR FEVER GREATER THAT 101. * WEAR CARLOS HOSE 20 HOURS PER DAY FOR 2 WEEKS. * NAFISA Dressing - This is a large suction dressing covering your incision. This will help pull any excess drainage from the wound and allow your incision to heal properly. You may shower with this if you can keep the unit outside of the shower. If any bleeding or leakage is noted please call your doctor's office. This will remain on your incision for 7 days and then should be removed. This can be done yourself or by the home nursing staff if applicable. The entire unit is disposable once removed. Once removed, keep incision clean and dry. If redness or drainage is noted, please call your surgeon. . * Once your NAFISA Dressing has been removed --> DERMABOND eo- This is a mesh tape dressing that is covered with glue. It should remain in place until the incision is properly healed, usually 7 days. This dressing is designed to naturally slough off. You may trim the excess mesh tape as it peels off. Incision may be briefly wet in a shower. Dry immediately by blotting with a clean, dry towel. Do not bath or swim until instructed by your doctor. Do not scratch, rub, or pick at the dressing. Do not apply any topical ointments or lotions until dressing is completely removed and/or instructed by your doctor. There may be a small piece of suture material at one end of your incision. Do not pull or trim this. If it is bothersome or catching on clothing, you may cover it with a band-aid. FOLLOW UP VISIT: If appointment is not already scheduled: Please call [facility] [place] to make a follow-up appointment for 2 weeks after your surgery at . Stand-Alone Forms: My [facility] [employer], Smoking Cessation Medications and DC Order Prescriptions: New acetaminophen [Tylenol Extra Strength] 500 mg Tablet 1,000 mg PO Q8 14 Days Qty: 84 0RF aspirin 81 mg Tablet,Delayed Release (Dr/Ec) 81 mg PO BID 30 Days Qty: 60 0RF polyethylene glycol 3350 [Miralax] 17 gram powder in packet 17 g PO DAILY PRN (Reason: constipation) Qty: 5 0RF cefadroxil 500 mg capsule 500 mg PO BID Qty: 28 1RF oxycodone 5 mg tablet 5 mg PO Q4H MDD 6 PRN (Reason: pain) Qty: 30 0RF Continued metformin 500 mg Tablet 500 mg PO BID simvastatin 40 mg Tablet 40 mg PO HS garlic 1,000 mg Capsule 1,000 mg PO QAM cyanocobalamin (vitamin B-12) 500 mcg Tablet 500 mcg PO QAM zinc 25 mg Tablet 25 mg PO QAM allopurinol 300 mg Tablet 300 mg PO HS metoprolol succinate 25 mg Tablet Extended Release 24 Hr 25 mg PO QAM lisinopril 40 mg Tablet 40 mg PO HS ascorbic acid (vitamin C) [Vitamin C] 500 mg Tablet Extended Release 500 mg PO QAM coenzyme Q10 [Co Q-10] 100 mg Capsule 100 mg PO QAM cholecalciferol (vitamin D3) [Vitamin D3] 25 mcg (1,000 unit) Tablet 25 mcg PO QAM Probiotic 3 billion cell Capsule 3,000 mmu cells PO QAM Rx Instructions: administer with a meal Discontinued aspirin [Aspir-81] 81 mg Tablet,Delayed Release (Dr/Ec) 81 mg PO QAM [id number] C-Mn [Glucosamine Chondroitin MaxStr] 500-400 mg Capsule 1 cap PO QAM [place] 3 Fish Oil 684-1,200 mg Capsule,Delayed Release(Dr/Ec) 1 cap PO QAM Discharge Orders: Discharge Order (Routine); Ordered 07/12/22 Ordered By: Timur Banuelos Admission Data Admit Date/Time: 07/11/22 11:51 Attending Provider: Michael Flor Admit Provider: Michael Flor Primary Care Provider: Niyah Bonilla Other Providers: Neela Verdugo ; Genaro Sebastian ; [facility],Home Healthcare Other Interventions: Discharge Summary Assessment (RN) Last Done: 07/12/22 10:15
== END 2022-07-12 12:02 | disposition home health service (06) ==
LOC: PACUINP 07:10 → ASU 07:10 → 3N 14:14

== ENCOUNTER 2024-06-10 10:34 | Inpatient (IN) ==
[2024-06-10] MEDS: SODIUM CHLORIDE 0.9% 500 ML IV ONE (11:00)
[2024-06-10] MEDS ORDERED: STAT IV Infusion **Titration per Protocol STA ×2 (11:29→20:22)
[2024-06-10] MEDS ORDERED: NOREPINEPHRINE/D5W 4 MG/250 ML PLCT IV SCH (11:30)
[2024-06-10 11:33] LABS: Basophils # (auto) 0.04 K/uL (0.00-0.20); Basophils % (auto) 0.2 %; Eosinophils # (auto) 0.03 K/uL (0.00-0.50); Eosinophils % (auto) 0.2 %; Hematocrit (blood only) 41.7 % (42.0-52.0); Hemoglobin 13.9 g/dl (14.0-18.0); Immature Granulocytes # (auto) 0.06 K/uL (0.01-0.20); Immature Granulocytes % (auto) 0.4 %; Lymphocytes % (auto) 11.7 %; Mean Corpuscular Hemoglobin 32.6 pg (25.0-34.0); Mean Corpuscular Hgb Conc 33.3 g/dL (32.0-36.0); Mean Corpuscular Volume 97.7 fL (80.0-100.0); Mean Platelet Volume 11.5 fL (9.4-12.4); Monocytes # (auto) 0.89 K/uL (0.11-0.59); Monocytes % (auto) 5.5 %; Neutrophils # (auto) 13.28 K/uL (1.40-6.50); Platelet Count 185 K/uL (130-400); RDW Coefficient of Variation 14.3 % (11.5-14.5); RDW Standard Deviation 51.2 fL (36.4-46.3); Red Blood Count 4.27 M/uL (4.70-6.10)
[2024-06-10] MEDS: Standard Conc; 4mg in 250mL IV SCH (11:39)
--- NOTE | 2024-06-10 11:40 | XRay Report ---
XR chest 1V portable CLINICAL HISTORY: Pneumonia. COMPARISON STUDY: PET/CT February 06, 2024. FINDINGS: Left subclavian [id number] is in place. Low lung volumes are noted. There is no pneumoth orax or pleural effusion. Moderate left lower lobe consolidation is present. There is cardiomegaly wi thout evidence for pulmonary edema. IMPRESSION: Moderate left basilar consolidation suggestive of pneumonia. ACT 112: Negative or not required by law. Electronically signed by: Brandin Whittington M.D. 06/10/2024 11:39 AM
[2024-06-10] MEDS: SODIUM CHLORIDE 0.9% 1,000 ML IV ONE (11:41)
[2024-06-10 11:48] LABS: Base Excess VBG -1.5 mEq/L; HCO3 VBG 24 mmol/L; Oxygen Saturation VBG < 60.0 %; PCO2 VBG 44 mmHg (38-50); PO2 VBG 33 mmHg; pH VBG 7.35 (7.36-7.41)
[2024-06-10 11:49] LABS: Albumin Level 3.9 gm/dl (3.4-5.0); Bilirubin Direct 0.2 mg/dl (0-0.2); Bilirubin,Total 1.1 mg/dl (0.2-1.0); Calcium 9.6 mg/dl (8.6-10.3); Creatinine Clr Calc Pharmacy 58.1 ml/min; Potassium 4.4 mmol/L (3.5-5.1); Total Protein 6.7 gm/dl (6.0-8.3)
[2024-06-10 11:54] LABS: Troponin I High Sensitivity 19.1 pg/ml (0-20)
[2024-06-10] MEDS: cefTRIAXone SODIUM 2,000 MG/50 ML BAG IV STA (11:54)
--- NOTE | 2024-06-10 11:59 | Emergency Department Note ---
Impression & Plan Septic shock, Pneumonia ED Provider Note NAME: SHEFALI ROJAS AGE: 78 SEX: M : 1945 ARRIVES VIA: Walk-In INFORMANT: Patient, ED PROVIDER(S): Wm Fitzgerald MD CHIEF COMPLAINT: SOB, chills HPI: This is 78-year-old male history of prostate cancer presenting for shortness of breath, weakness and chills. Patient states he woke about 2-3 in the morning with shaking chills. He could not get warm. He notes that he has had a cough and congestion in his chest. Declines feeling short of breath at this time. Denies any current chest pain. 1 episode of vomiting but otherwise he feels very weak overall. ROS: See above HPI for pertinent positives & negatives. A total of 10 systems reviewed and were otherwise negative. PAST MEDICAL HISTORY: See Below PAST SURGICAL HISTORY: See Below FAMILY HISTORY: See Below SOCIAL HISTORY: See Below HOME MEDICATIONS: See Below ALLERGIES: See Below VITALS: See Below PHYSICAL EXAMINATION: General: resting comfortably in no acute distress Head: Normocephalic and atraumatic Eyes: Normal inspection, extraocular muscles intact Ear, nose, throat: Normal external exam Neck: Normal range of motion Respiratory: Rhonchi and left lower lobe Cardiovascular: Regular rate/rhythm, no murmur GI: soft, nontender, no guarding or rebound Extremities: nontender, moves all extremities Neuro: The patient awake and alert, appropriately conversive, no focal deficits, symmetric faces Skin: Warm, dry, and intact MEDICAL DECISION MAKING: This is 78-year-old male presenting for shortness of breath, weakness and chills. Clinically consider pneumonia as patient is hypoxic, hypotensive. Consider sepsis at this time. -Will start with 500 cc bolus -After 1000 cc bolus, patient still hypotensive, will give Levophed and fluids at this time. -Chest Xray independently interpreted by me showing no pneumothorax or pleural effusions. -Official radiology report reveals a left lower lobe pneumonia. -Will give ceftriaxone and doxycycline -Patient's lactic acid is elevated at 4.2, likely due to his current sepsis -Due to concern for fluid overload, will cease at 1.5 L resuscitation and continue Levophed instead -Patient required mission for his pneumonia/sepsis Differential diagnosis: Pneumonia, sepsis, PE, ACS ER treatment provided: See below Independent History obtained from: Diagnostics interpreted by me: ECG: ECG independently interpreted by me with normal sinus rhythm at a rate of 99 normal axis, normal TN, normal QRS, normal QTc, no ST segment elevations consistent with STEMI criteria Cardiac Monitoring: An order was placed for continuous cardiac monitoring. The monitor shows a rate of 102 with sinus rhythm. Laboratory studies: As stated above and show below. Imaging studies: See below. Critical Care Note: I have personally spent 45 minutes of critical care time in the direct management of this patient. This includes bedside care, interpretation of diagnostic studies, and testing, discussion with consultants, patient, and family members, and other required patient management activities. This 45 minutes is in excess of all separately billable procedures. 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, left Encounter for pre-operative examination Prostate cancer with bony metastasis >new dx Diabetes mellitus, type 2 NIDDM Hypertension Hyperlipidemia CAD (coronary artery disease) - LA to LAD and balloon angioplasty to ramus intermedius January 2012 - Negative DSE 04/2022 Medical History Prostate cancer Hx of gout Diverticular disease History of skin cancer Surgical History Hx of cataract surgery Nausea and vomiting after administration of anesthetic agent H/O cystoscopy Port-A-Cath in place (06/28/23) H/O prostate biopsy History of knee replacement (~2021) S/P right inguinal hernia repair (08/17/09) History of colonoscopy (~2019) Hx of inguinal hernia repair (05/18/15) Hx of umbilical hernia repair (12/02/99) History of appendectomy (~1998) History of tooth extraction History of heart artery stent Family History Mother Diabetes Heart disease Hypertension Stroke Father Cancer Other No family history of adverse response to anesthesia Social History Smoking Status: Never smoker packs per day: 2; Second Hand Exposure: No; Do You Dip or Chew Tobacco: No; Hx Alcohol Use: No Hx Substance Use: No Preferred Language: Ecuadorean Communication Ability: Effective Import Customer Service Manager Required: No Beliefs That Will Affect Care: None marital status: Current Living Situation: Spouse current occupational status: retired How many Children do You have: 2 Feels Safe at Home: Yes Diet: regular during the past year weight has: remained stable Assistive Devices: Glasses Allergies Allergies Allergy/AdvReac Type Severity Reaction Status Date / Time chlorhexidine Allergy Mild rash Verified 03/10/24 15:17 metronidazole Allergy Mild Rash Verified 03/10/24 15:17 omeprazole Allergy Mild itch Verified 03/10/24 15:17 Home Meds Home Medications Medication Instructions Recorded Confirmed allopurinol 300 mg tablet 300 mg PO HS 05/29/22 06/10/24 ascorbic acid (vitamin C) 500 mg 500 mg PO QAM 05/29/22 06/10/24 tablet,extended release (Vitamin C ER) cholecalciferol (vitamin D3) 25 25 mcg PO QAM 05/29/22 06/10/24 mcg (1,000 unit) tablet (Vitamin D3) coenzyme Q10 100 mg capsule (Co 100 mg PO QAM 05/29/22 06/10/24 Q-10) cyanocobalamin (vitamin B-12) 500 500 mcg PO QAM 05/29/22 06/10/24 mcg tablet garlic 1,000 mg capsule 1,000 mg PO QAM 05/29/22 06/10/24 lactobacillus combination no.4 3 3,000 mmu cells PO QAM 05/29/22 06/10/24 billion cell capsule (Probiotic) metformin 500 mg tablet 500 mg PO BID 05/29/22 06/10/24 metoprolol succinate 25 mg 25 mg PO BID 05/29/22 06/10/24 tablet,extended release 24 hr simvastatin 40 mg tablet 40 mg PO HS 05/29/22 06/10/24 aspirin 81 mg tablet,delayed 81 mg PO QAM 04/25/23 06/10/24 release (Adult Aspirin Regimen) omega-3 fatty acids 500 mg capsule 500 mg PO DAILY 04/25/23 06/10/24 tamsulosin 0.4 mg capsule 0.4 mg PO QAM 04/25/23 06/10/24 calcium carbonate 1,200 mg PO QAM 06/27/23 06/10/24 glucosamine-chondroitin 250 mg-200 2 tab PO QAM 06/27/23 06/10/24 mg tablet (Osteo Bi-Flex) prednisone 5 mg tablet 5 mg PO BID 06/27/23 06/10/24 nitroglycerin 0.4 mg sublingual 0.4 mg sublingual Q5M PRN Chest 07/05/23 06/10/24 tablet (Nitrostat) Pain abiraterone 250 mg tablet (Zytiga) 1,000 mg PO QAM 10/01/23 06/10/24 loratadine 10 mg tablet (Claritin) 10 mg PO QAM 10/01/23 06/10/24 Previous Rx's Medication Instructions Recorded ofloxacin 0.3 % ear drops 10 drp otic (ear) DAILY 7 days #10 03/10/24 mL Results & Data (ED) Vital Signs Vital Signs - 24 hr 06/10/24 10:45 06/10/24 10:55 06/10/24 11:00 Temperature 36.6 C Temperature Source Temporal Artery Scan Pulse Rate 114 H 97 H 95 H Pulse Rate [Apical] Pulse Rate from SpO2 Sensor 97 H Respiratory Rate 18 Respiratory Effort / Characteristics Non-Labored Respiratory Depth Normal Respiratory Pattern Regular Blood Pressure 64/50 L 87/58 L 83/57 L Blood Pressure [Left Arm] Blood Pressure Mean 54 64 65 Blood Pressure Mean [Left Arm] Blood Pressure Position [Left Arm] Pulse Oximetry 85 L 86 L 91 Oxygen Delivery Method Room Air Room Air Nasal Cannula Oxygen Flow Rate 4 Sepsis Recent Fever Within 48 Hours No Sepsis New/Unexplained Change in Mental Status N/A Sepsis Action Taken by Nursing Physician Notified 06/10/24 11:15 06/10/24 11:19 06/10/24 11:30 Temperature Temperature Source Pulse Rate 104 H 99 H Pulse Rate [Apical] 102 H Pulse Rate from SpO2 Sensor 105 H Respiratory Rate 28 H 25 H Respiratory Effort / Characteristics Non-Labored Spontaneous Respiratory Depth Respiratory Pattern Blood Pressure 71/45 L 74/52 L Blood Pressure [Left Arm] 74/50 L Blood Pressure Mean 54 59 Blood Pressure Mean [Left Arm] 58 Blood Pressure Position [Left Arm] Lying Pulse Oximetry 92 95 95 Oxygen Delivery Method Nasal Cannula Nasal Cannula Nasal Cannula Oxygen Flow Rate 4 4 4 Sepsis Recent Fever Within 48 Hours Sepsis New/Unexplained Change in Mental Status Sepsis Action Taken by Nursing 06/10/24 11:45 06/10/24 12:00 06/10/24 12:15 Temperature Temperature Source Pulse Rate 98 H 99 H 103 H Pulse Rate [Apical] Pulse Rate from SpO2 Sensor Respiratory Rate 24 25 H 25 H Respiratory Effort / Characteristics Respiratory Depth Respiratory Pattern Blood Pressure 92/60 L 89/62 L 93/59 L Blood Pressure [Left Arm] Blood Pressure Mean 70 71 70 Blood Pressure Mean [Left Arm] Blood Pressure Position [Left Arm] Pulse Oximetry 97 98 94 Oxygen Delivery Method Nasal Cannula Nasal Cannula Nasal Cannula Oxygen Flow Rate 4 4 4 Sepsis Recent Fever Within 48 Hours Sepsis New/Unexplained Change in Mental Status Sepsis Action Taken by Nursing 06/10/24 12:26 06/10/24 12:30 06/10/24 12:45 Temperature Temperature Source Pulse Rate 101 H 102 H 102 H Pulse Rate [Apical] Pulse Rate from SpO2 Sensor 102 H Respiratory Rate 24 22 Respiratory Effort / Characteristics Respiratory Depth Respiratory Pattern Blood Pressure 94/60 L 98/63 L Blood Pressure [Left Arm] Blood Pressure Mean 71 72 Blood Pressure Mean [Left Arm] Blood Pressure Position [Left Arm] Pulse Oximetry 97 97 Oxygen Delivery Method Nasal Cannula Nasal Cannula Oxygen Flow Rate 4 4 Sepsis Recent Fever Within 48 Hours Sepsis New/Unexplained Change in Mental Status Sepsis Action Taken by Nursing 06/10/24 12:58 06/10/24 13:00 Temperature Temperature Source Pulse Rate 102 H Pulse Rate [Apical] 104 H Pulse Rate from SpO2 Sensor Respiratory Rate 24 21 Respiratory Effort / Characteristics Non-Labored Spontaneous Respiratory Depth Respiratory Pattern Blood Pressure 83/56 L Blood Pressure [Left Arm] 87/56 L Blood Pressure Mean 65 Blood Pressure Mean [Left Arm] 66 Blood Pressure Position [Left Arm] Pulse Oximetry 96 95 Oxygen Delivery Method Nasal Cannula Room Air Oxygen Flow Rate 4 Sepsis Recent Fever Within 48 Hours Sepsis New/Unexplained Change in Mental Status Sepsis Action Taken by Nursing Laboratory Data 06/10/24 11:04 06/10/24 11:04 Lab Results 06/10/24 06/10/24 06/10/24 Range/Units 11:04 11:17 11:38 WBC 16.20 H (4.8-10.8) K/ul RBC 4.27 L (4.70-6.10) M/uL Hgb 13.9 L (14.0-18.0) g/dl Hct 41.7 L (42.0-52.0) % MCV 97.7 (80.0-100.0) fL MCH 32.6 (25.0-34.0) pg MCHC 33.3 (32.0-36.0) g/dL RDW Std Deviation 51.2 H (36.4-46.3) fL RDW Coeff of Ulices 14.3 (11.5-14.5) % Plt Count 185 (130-400) K/uL MPV 11.5 (9.4-12.4) fL Immature Gran % (Auto) 0.4 % Neut % (Auto) 82.0 % Lymph % (Auto) 11.7 % Barbour % (Auto) 5.5 % Eos % (Auto) 0.2 % Baso % (Auto) 0.2 % Neut # (Auto) 13.28 H (1.40-6.50) K/uL Lymph # (Auto) 1.90 (1.20-3.40) K/uL Barbour # (Auto) 0.89 H (0.11-0.59) K/uL Eos # (Auto) 0.03 (0.00-0.50) K/uL Baso # (Auto) 0.04 (0.00-0.20) K/uL Immature Gran # (Auto) 0.06 (0.01-0.20) K/uL VBG pH Cancelled 7.35 L VBG pCO2 Cancelled 44 VBG pO2 Cancelled 33 VBG HCO3 Cancelled 24 VBG O2 Saturation Cancelled < 60.0 VBG Base Excess Cancelled -1.5 Barometric Pressure Cancelled Sodium 137 (136-145) mmol/L Potassium 4.4 (3.5-5.1) mmol/L Chloride 100 (98-107) mmol/L Carbon Dioxide 25 (21-32) mmol/L Anion Gap 12 H (3-11) BUN 26 H (6-23) mg/dl Creatinine 1.24 (0.6-1.4) mg/dl Est Cr Clr Drug Dosing 58.1 ml/min eGFR 59.88 BUN/Creatinine Ratio 21.0 H (10-20) Glucose 253 H (70-99(Fasting)) mg/dl Lactate 4.2 H* (0.4-2.0) mmol/L Calcium 9.6 (8.6-10.3) mg/dl Total Bilirubin 1.1 H (0.2-1.0) mg/dl Direct Bilirubin 0.2 (0-0.2) mg/dl AST 14 (13-39) U/L ALT 15 (7-52) U/L Alkaline Phosphatase 53 (34-104) U/L Troponin I High Sens 19.1 (0-20) pg/ml Total Protein 6.7 (6.0-8.3) gm/dl Albumin 3.9 (3.4-5.0) gm/dl Lipase 23 (11-82) U/L Adenovirus (PCR) Not Detected (NotDetected) B. pertussis DNA (PCR) Not Detected (NotDetected) B.parapertussis DNA PCR Not Detected (NotDetected) C. pneumoniae DNA (PCR) Not Detected (NotDetected) Coronavirus OC43 (PCR) Not Detected (NotDetected) Coronavirus HKU1 (PCR) Not Detected (NotDetected) Coronavirus 229E (PCR) Not Detected (NotDetected) SARS-CoV-2 (PCR) Not Detected (NotDetected) Coronavirus NL63 (PCR) Not Detected (NotDetected) Human Metapneumovir PCR Not Detected (NotDetected) Influenza Type A (PCR) Not Detected (NotDetected) Influenza Type B (PCR) Not Detected (NotDetected) M. pneumoniae (PCR) Not Detected (NotDetected) Parainfluenza 1 (PCR) Not Detected (NotDetected) Parainfluenza 2 (PCR) Not Detected (NotDetected) Parainfluenza 3 (PCR) Not Detected (NotDetected) Parainfluenza 4 (PCR) Not Detected (NotDetected) RSV (PCR) Not Detected (NotDetected) Entero/Rhino (PCR) Not Detected (NotDetected) Administered Medications Norepinephrine Bitartrate (Levophed/D5w) 4 mg in 250 mls @ 18.731 mls/hr IV .[id number] [facility]; Protocol Stop: 07/10/24 11:29 Last Titration: 06/10/24 13:03 Dose: 0.05 mcg/kg/min, 18.7 mls/hr Documented By: Titration: 06/10/24 12:51 Dose: 0 mcg/kg/min, 0 mls/hr Documented By: Admin: 06/10/24 11:39 Dose: 0.05 mcg/kg/min, 18.7 mls/hr Documented By: SHONDA Co-signed By: ROJELIO Doxycycline Hyclate 100 mg/ (Dextrose) 100 mls @ 50 mls/hr IV Q12H [facility] Stop: 06/12/24 11:44 Last Admin: 06/10/24 12:28 Dose: 50 mls/hr Documented By: SHONDA Discontinued Medications Sodium Chloride (Nss) 500 mls @ 999 mls/hr IV .Q31M ONE Stop: 06/10/24 11:28 Last Infusion: 06/10/24 11:31 Dose: Infused Documented By: Admin: 06/10/24 11:00 Dose: 999 mls/hr Documented By: SHONDA Sodium Chloride (Nss) 1,000 mls @ 999 mls/hr IV .Q1H1M ONE Stop: 06/10/24 12:29 Last Infusion: 06/10/24 13:05 Dose: Infused Documented By: Admin: 06/10/24 11:41 Dose: 999 mls/hr Documented By: SHONDA Ceftriaxone Sodium (Rocephin) 2,000 mg in 50 mls @ 100 mls/hr IV NOW STA Stop: 06/10/24 12:11 Last Infusion: 06/10/24 12:34 Dose: Infused Documented By: Admin: 06/10/24 11:54 Dose: 100 mls/hr Documented By: SHONDA Imaging Data Radiologist's Impression: Chest X-Ray 06/10/24 10:57 XR chest 1V portable CLINICAL HISTORY: Pneumonia. COMPARISON STUDY: PET/CT February 06, 2024. FINDINGS: Left subclavian Pijyno-x-Dovg is in place. Low lung volumes are noted. There is no pneumothorax or pleural effusion. Moderate left lower lobe consolidation is present. There is cardiomegaly without evidence for pulmonary edema. IMPRESSION: Moderate left basilar consolidation suggestive of pneumonia. ACT 112: Negative or not required by law. Electronically signed by: Brandin Whittington M.D. 06/10/2024 11:39 AM Discharge Plan Visit Data Chief Complaint: Flu Like Symptoms Stated Complaint: COUGH, CONGESTION, DIZZY, SHAKES, WEAK, VOMITING ED Provider: Wm Fitzgerald Discharge Problem: Septic shock, Pneumonia Patient Disposition: Admitted As Inpatient Discharge Instructions Interventions: ED Discharge Assessment Last Done: 06/10/24 14:28
[2024-06-10] MEDS: DOXYCYCLINE HYCLATE 100 MG in DEXTROSE 5% MINI-B 100 ML IV SCH (12:28)
[2024-06-10 12:31] LABS: Adenovirus PCR Not Detected (NotDetected); Bordetella parapertussis PCR Not Detected (NotDetected); Bordetella pertussis PCR Not Detected (NotDetected); Chlamydia pneumoniae PCR Not Detected (NotDetected); Coronavirus 229E PCR Not Detected (NotDetected); Coronavirus CoV-2 (COVID19)PCR Not Detected (NotDetected); Coronavirus HKU1 PCR Not Detected (NotDetected); Coronavirus NL63 PCR Not Detected (NotDetected); Coronavirus OC43PCR Not Detected (NotDetected); Human Metapneumovirus PCR Not Detected (NotDetected); Influenza A PCR Not Detected (NotDetected); Influenza B PCR Not Detected (NotDetected); Mycoplasma pneumoniae PCR Not Detected (NotDetected); Parainfluenza Virus 1 PCR Not Detected (NotDetected); Parainfluenza Virus 2 PCR Not Detected (NotDetected); Parainfluenza Virus 3 PCR Not Detected (NotDetected); Parainfluenza Virus 4 PCR Not Detected (NotDetected); Respiratory Syncytial VirusPCR Not Detected (NotDetected); Rhinovirus/Enterovirus PCR Not Detected (NotDetected)
--- NOTE | 2024-06-10 13:23 | History & Physical Report ---
Date of Service June 10, 2024 Assessment & Plan (1) Septic shock: (2) Pneumonia: Plan: 78-year-old man with history of prostate cancer, diabetes, hypertension who presented with cough and rigors. Lab notable for leukocytosis of 16,000, lactic of 4.2 Respiratory PCR is negative Chest x-ray noted left basilar opacity Patient still hypotensive after IV fluid bolus. Currently on low-dose Levophed. Will admit patient to ICU. ICU physician notified. Blood ceftriaxone and doxycycline. Continue IV antibiotics Follow-up infectious workup [Blood cultures] Cr is 1.24 today. Was 0.92 on 04/23/24. Possible INA in setting of septic shock Hold BP lowering meds for now Get RLE dopplers (3) Diabetes mellitus: Plan: Hold home metformin Insulin sliding scale per protocol HbA1c was 6.7 on 12/04/23 (4) History of prostate cancer: Plan: On zytiga reported he is in remission (5) DVT prophylaxis: Plan: Hep sq Code status: FULL I spent a total of 70 minutes coordinating, documenting and providing care for this patient excluding time spent in performance of separately billed services History of Present Illness Chief Complaint: Cough and chills Primary Care Provider: Niyah Bonilla DO 78-year-old man with hypertension, DM type II, prostate cancer hyperlipidemia who presents to the ER complaining of cough that started yesterday. History provided by patient and at bedside. Patient reported that yesterday, he started some cough with weakness. Overnight he developed shaking chills and rigors. Had 1 episode of nonbloody vomiting and loose bowel movement. Reported feeling feverish but temp not measured. Noted to be increasingly weak and unsteady on his feet Denies any chest pain, headache Denies abdominal pain. Allergies Allergy/AdvReac Type Severity Reaction Status Date / Time chlorhexidine Allergy Mild rash Verified 03/10/24 15:17 metronidazole Allergy Mild Rash Verified 03/10/24 15:17 omeprazole Allergy Mild itch Verified 03/10/24 15:17 Home Medications Medication Instructions Recorded Confirmed Type allopurinol 300 mg tablet 300 mg PO HS 05/29/22 06/10/24 History ascorbic acid (vitamin C) 500 mg 500 mg PO QAM 05/29/22 06/10/24 History tablet,extended release (Vitamin C ER) cholecalciferol (vitamin D3) 25 25 mcg PO QAM 05/29/22 06/10/24 History mcg (1,000 unit) tablet (Vitamin D3) coenzyme Q10 100 mg capsule (Co 100 mg PO QAM 05/29/22 06/10/24 History Q-10) cyanocobalamin (vitamin B-12) 500 500 mcg PO QAM 05/29/22 06/10/24 History mcg tablet garlic 1,000 mg capsule 1,000 mg PO QAM 05/29/22 06/10/24 History lactobacillus combination no.4 3 3,000 mmu cells PO QAM 05/29/22 06/10/24 History billion cell capsule (Probiotic) metformin 500 mg tablet 500 mg PO BID 05/29/22 06/10/24 History metoprolol succinate 25 mg 25 mg PO BID 05/29/22 06/10/24 History tablet,extended release 24 hr simvastatin 40 mg tablet 40 mg PO HS 05/29/22 06/10/24 History aspirin 81 mg tablet,delayed 81 mg PO QAM 04/25/23 06/10/24 History release (Adult Aspirin Regimen) omega-3 fatty acids 500 mg capsule 500 mg PO DAILY 04/25/23 06/10/24 History tamsulosin 0.4 mg capsule 0.4 mg PO QAM 04/25/23 06/10/24 History calcium carbonate 1,200 mg PO QAM 06/27/23 06/10/24 History glucosamine-chondroitin 250 mg-200 2 tab PO QAM 06/27/23 06/10/24 History mg tablet (Osteo Bi-Flex) prednisone 5 mg tablet 5 mg PO BID 06/27/23 06/10/24 History nitroglycerin 0.4 mg sublingual 0.4 mg sublingual Q5M PRN Chest 07/05/23 06/10/24 History tablet (Nitrostat) Pain abiraterone 250 mg tablet (Zytiga) 1,000 mg PO QAM 10/01/23 06/10/24 History loratadine 10 mg tablet (Claritin) 10 mg PO QAM 10/01/23 06/10/24 History ofloxacin 0.3 % ear drops 10 drp otic (ear) DAILY 7 days #10 03/10/24 06/10/24 Rx mL Past Med/Surg History Problem List (Updated 06/10/24 @ 13:21 by Jamee George MD) DVT prophylaxis History of prostate cancer Diabetes mellitus Pneumonia Septic shock Prostate cancer metastatic to bone (Chronic) Bladder stone BPH NOS w ur obs/LUTS Elevated PSA 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, left Encounter for pre-operative examination Prostate cancer with bony metastasis >new dx Diabetes mellitus, type 2 NIDDM Hypertension Hyperlipidemia CAD (coronary artery disease) - LA to LAD and balloon angioplasty to ramus intermedius January 2012 - Negative DSE 04/2022 Medical History Prostate cancer Hx of gout Diverticular disease History of skin cancer Surgical History Hx of cataract surgery Nausea and vomiting after administration of anesthetic agent H/O cystoscopy Port-A-Cath in place (06/28/23) H/O prostate biopsy History of knee replacement (~2021) S/P right inguinal hernia repair (08/17/09) History of colonoscopy (~2019) Hx of inguinal hernia repair (05/18/15) Hx of umbilical hernia repair (12/02/99) History of appendectomy (~1998) History of tooth extraction History of heart artery stent Family History Mother Diabetes Heart disease Hypertension Stroke Father Cancer Other No family history of adverse response to anesthesia Social History Smoking Status: Never smoker packs per day: 2; Second Hand Exposure: No; Do You Dip or Chew Tobacco: No; Hx Alcohol Use: No Hx Substance Use: No Preferred Language: French Communication Ability: Effective Box Printer Required: No Beliefs That Will Affect Care: None marital status: Current Living Situation: Spouse current occupational status: retired How many Children do You have: 2 Feels Safe at Home: Yes Diet: regular during the past year weight has: remained stable Assistive Devices: Glasses Review of Systems Review of Systems: All systems reviewed & are unremarkable except as noted in HPI & below Physical Exam Constitutional: + ill appearing; no acute distress Eyes: PERRL, conjunctivae normal, anicteric sclerae ENMT: external ear and nose normal, oropharynx normal Respiratory: On nasal cannula, not in resp distress, +crackles, +cough Cardiovascular: Rate/Rhythm: + tachycardic S1 S2 Gastrointestinal (Abdomen): normal bowel sounds, soft, nontender, no hepatosplenomegaly Musculoskeletal: RLE edema ( noted this is chronic) Neurologic: PERRL, EOMI, accommodation nl, no face palsy, no dysarthria Psychiatric: A+Ox3, euthymic affect Results & Data Results & Data Vital Signs (Past 12 Hours) Vital Signs Temp Pulse Pulse Resp BP BP Pulse Ox 06/10/24 13:00 104 H 21 87/56 L 95 06/10/24 12:58 102 H 24 83/56 L 96 06/10/24 12:45 102 H 22 98/63 L 97 06/10/24 12:30 102 H 24 94/60 L 97 06/10/24 12:26 101 H 06/10/24 12:15 103 H 25 H 93/59 L 94 06/10/24 12:00 99 H 25 H 89/62 L 98 06/10/24 11:45 98 H 24 92/60 L 97 06/10/24 11:30 99 H 25 H 74/52 L 95 06/10/24 11:19 102 H 28 H 74/50 L 95 06/10/24 11:15 104 H 71/45 L 92 06/10/24 11:00 95 H 83/57 L 91 06/10/24 10:55 97 H 87/58 L 86 L 06/10/24 10:45 36.6 C 114 H 18 64/50 L 85 L O2 Del Method O2 Flow Rate 06/10/24 13:00 Room Air 06/10/24 12:58 Nasal Cannula 4 06/10/24 12:45 Nasal Cannula 4 06/10/24 12:30 Nasal Cannula 4 06/10/24 12:26 06/10/24 12:15 Nasal Cannula 4 06/10/24 12:00 Nasal Cannula 4 06/10/24 11:45 Nasal Cannula 4 06/10/24 11:30 Nasal Cannula 4 06/10/24 11:19 Nasal Cannula 4 06/10/24 11:15 Nasal Cannula 4 06/10/24 11:00 Nasal Cannula 4 06/10/24 10:55 Room Air 06/10/24 10:45 Room Air Laboratory Results Abnormal lab results 06/10/24 06/10/24 Range/Units 11:04 11:38 WBC 16.20 H (4.8-10.8) K/ul RBC 4.27 L (4.70-6.10) M/uL Hgb 13.9 L (14.0-18.0) g/dl Hct 41.7 L (42.0-52.0) % RDW Std Deviation 51.2 H (36.4-46.3) fL Neut # (Auto) 13.28 H (1.40-6.50) K/uL Otero # (Auto) 0.89 H (0.11-0.59) K/uL VBG pH 7.35 L (7.36-7.41) Anion Gap 12 H (3-11) BUN 26 H (6-23) mg/dl BUN/Creatinine Ratio 21.0 H (10-20) Glucose 253 H (70-99(Fasting)) mg/dl Lactate 4.2 H* (0.4-2.0) mmol/L Total Bilirubin 1.1 H (0.2-1.0) mg/dl Diagnostic Findings XR chest 1V portable CLINICAL HISTORY: Pneumonia. COMPARISON STUDY: PET/CT February 06, 2024. FINDINGS: Left subclavian Imxcbr-r-[id number] is in place. Low lung volumes are noted. There is no pneumothorax or pleural effusion. Moderate left lower lobe consolidation is present. There is cardiomegaly without evidence for pulmonary edema. IMPRESSION: Moderate left basilar consolidation suggestive of pneumonia. Code Status & VTE Plan Code Status Full code VTE Prophylaxis Plan VTE Prophylaxis will be ordered: Yes
--- NOTE | 2024-06-10 13:52 | Critical Care Consultation ---
Date of Consultation June 10, 2024 Assessment & Plan (1) History of prostate cancer: (2) Diabetes mellitus: (3) Pneumonia: (4) Septic shock: (5) Prostate cancer metastatic to bone: (6) Hyperlipidemia: (7) CAD (coronary artery disease): (8) Hx of gout: (9) INA (acute kidney injury): Plan Reason Critically Ill: 78-year-old male present to the hospital for cough and rigors. Transferred to ICU as he needed vasopressors Past medical history: Type 2 diabetes, hypertension, dyslipidemia, prostate cancer Neuro - [facility]: Negative Cardiac - -- Shock Likely septic from pneumonia Also is on chronic prednisone. Will give the patient stress dose hydrocortisone Vasopressor support to keep MAP greater than 65 --History of hypertension Hold home blood pressure medication Respiratory - -- Acute hypoxic respiratory failure Likely secondary to left lower lobe pneumonia Respiratory BioFire negative for everything on 06/10/2024 Continue with O2 supplementation to keep oxygen saturation between 90-92% Chest x-ray 06/10/2024 personally reviewed: Portable film, poor inspiratory effort, retrocardiac opacity appreciated, bilateral costophrenic angles are clean --Ex-smoker [id number] smoking history Quit a long time ago GI - -- Nausea prior to coming to the hospital Continue with as needed ondansetron RENAL/LYTES - -- INA Likely secondary to hypotension Follow-up urine lites Monitor BUN/creatinine Avoid nephrotoxic medications Strict ins and outs - -- History of prostate cancer PET/CT 09/2023 showed residual radiotracer uptake in the right humeral and right Acetabular lesions On abiraterone and prednisone 5 mg twice daily at home ENDO - -- ICU hypoglycemia protocol HEME - -- Normocytic anemia Monitor H&H ID - -- Left lower lobe pneumonia Respiratory BioFire negative for everything on 06/10/2024 Continue with Rocephin and Doxy --Prophylaxis VTE: Heparin GI: Pepcid Lines: Left-sided port, peripheral Diet: N.p.o. Plan: Strict in and out Patient got 1.5 L in the ED, I will give another liter bolus Follow sputum culture Will give him Mucinex and flutter valve to help him bring up the phlegm. Hydrocortisone 100 mg to be given now followed by 50 mg every 6 hours Magnesium and phosphorus being replaced Follow-up urine Legionella I have personally spent 62 minutes of critical care time in the direct management of this patient. This is a life/limb threatening event. This includes time spent evaluating patient, direct bedside care, chart review, placing orders, interpretation of diagnostic studies, discussion with consultants, patient, and family members, as well as other required patient management activities. This time is exclusive of all separately billable procedures, and teaching time and separate from and in addition to any other critical care service time. History of Present Illness History of Present Illness 78-year-old male present to the hospital for cough and rigors Past medical history: Type 2 diabetes, hypertension, dyslipidemia, prostate cancer Transferred to ICU as he needed vasopressors At the time of examination patient was not in any distress He was on 0.05 Levophed with MAP in the 63. He was coughing, not bringing up any phlegm. Better he stated that he was not feeling well yesterday, significant rigors and lethargy. Denies any recent upper respite tract infection. Para does state that her is also coughing. He has been taking prednisone 5 mg twice daily for approximately 8 months to counter the effects of abiraterone Had 1 episode of diarrhea. Denies any dysuria No hemoptysis No unusual headache or blurry vision. Did complain of dizziness prior to coming to the hospital Social history: [id number] smoking history, quit a long time ago. Used to work in [employer]. Did not wear any mask Dogs at home. No birds or poultry nearby Allergies Allergy/AdvReac Type Severity Reaction Status Date / Time chlorhexidine Allergy Mild rash Verified 03/10/24 15:17 metronidazole Allergy Mild Rash Verified 03/10/24 15:17 omeprazole Allergy Mild itch Verified 03/10/24 15:17 Home Medications Medication Instructions Recorded Confirmed Type allopurinol 300 mg tablet 300 mg PO HS 05/29/22 06/10/24 History ascorbic acid (vitamin C) 500 mg 500 mg PO QAM 05/29/22 06/10/24 History tablet,extended release (Vitamin C ER) cholecalciferol (vitamin D3) 25 25 mcg PO QAM 05/29/22 06/10/24 History mcg (1,000 unit) tablet (Vitamin D3) coenzyme Q10 100 mg capsule (Co 100 mg PO QAM 05/29/22 06/10/24 History Q-10) cyanocobalamin (vitamin B-12) 500 500 mcg PO QAM 05/29/22 06/10/24 History mcg tablet garlic 1,000 mg capsule 1,000 mg PO QAM 05/29/22 06/10/24 History lactobacillus combination no.4 3 3,000 mmu cells PO QAM 05/29/22 06/10/24 History billion cell capsule (Probiotic) metformin 500 mg tablet 500 mg PO BID 05/29/22 06/10/24 History metoprolol succinate 25 mg 25 mg PO BID 05/29/22 06/10/24 History tablet,extended release 24 hr simvastatin 40 mg tablet 40 mg PO HS 05/29/22 06/10/24 History aspirin 81 mg tablet,delayed 81 mg PO QAM 04/25/23 06/10/24 History release (Adult Aspirin Regimen) omega-3 fatty acids 500 mg capsule 500 mg PO DAILY 04/25/23 06/10/24 History tamsulosin 0.4 mg capsule 0.4 mg PO QAM 04/25/23 06/10/24 History calcium carbonate 1,200 mg PO QAM 06/27/23 06/10/24 History glucosamine-chondroitin 250 mg-200 2 tab PO QAM 06/27/23 06/10/24 History mg tablet (Osteo Bi-Flex) prednisone 5 mg tablet 5 mg PO BID 06/27/23 06/10/24 History nitroglycerin 0.4 mg sublingual 0.4 mg sublingual Q5M PRN Chest 07/05/23 06/10/24 History tablet (Nitrostat) Pain abiraterone 250 mg tablet (Zytiga) 1,000 mg PO QAM 10/01/23 06/10/24 History loratadine 10 mg tablet (Claritin) 10 mg PO QAM 10/01/23 06/10/24 History ofloxacin 0.3 % ear drops 10 drp otic (ear) DAILY 7 days #10 03/10/24 06/10/24 Rx mL Patient History Medical History Prostate cancer Hx of gout Diverticular disease History of skin cancer Surgical History Hx of cataract surgery Nausea and vomiting after administration of anesthetic agent H/O cystoscopy Port-A-Cath in place (06/28/23) H/O prostate biopsy History of knee replacement (~2021) S/P right inguinal hernia repair (08/17/09) History of colonoscopy (~2019) Hx of inguinal hernia repair (05/18/15) Hx of umbilical hernia repair (12/02/99) History of appendectomy (~1998) History of tooth extraction History of heart artery stent Family History Mother Diabetes Heart disease Hypertension Stroke Father Cancer Other No family history of adverse response to anesthesia Social History Smoking Status: Never smoker packs per day: 2; Second Hand Exposure: No; Do You Dip or Chew Tobacco: No; Hx Alcohol Use: No Hx Substance Use: No Preferred Language: Malagasy Communication Ability: Effective Cloud Infrastructure Architect Required: No Beliefs That Will Affect Care: None marital status: Current Living Situation: Spouse current occupational status: retired How many Children do You have: 2 Feels Safe at Home: Yes Diet: regular during the past year weight has: remained stable Assistive Devices: Glasses Review of Systems 2 Review of Systems: All systems reviewed & are unremarkable except as noted in HPI & below Physical Exam 2 Physical Exam: Constitutional: No acute distress HEENT: EOMI, PERRLA Respiratory system: Decreased air entry bilaterally, no wheeze, no rhonchi, positive crackles left lower lobe CVS: S1-S2 positive, no murmurs or gallops Abdomen: Soft, nontender, nondistended, positive bowel sounds x4, obese Extremities: +2 pulses bilaterally radialis/ dorsalis pedis, no cyanosis, +2 pitting edema right lower extremity Neuro: Awake alert oriented x3 Psych: Normal mood and affect G/U: No Pierson Skin: no rashes, warm and dry Lymphatic: no cervical or axillary lymphadenopathy Results & Data Results & Data Vital Signs (Past 12 Hours) Vital Signs Temp Pulse Pulse Resp BP BP Pulse Ox 06/10/24 13:30 101 H 23 89/60 L 93 06/10/24 13:15 37.3 C 101 H 26 H 96/64 L 95 06/10/24 13:00 104 H 21 87/56 L 95 06/10/24 12:58 102 H 24 83/56 L 96 06/10/24 12:45 102 H 22 98/63 L 97 06/10/24 12:30 102 H 24 94/60 L 97 06/10/24 12:26 101 H 06/10/24 12:15 103 H 25 H 93/59 L 94 06/10/24 12:00 99 H 25 H 89/62 L 98 06/10/24 11:45 98 H 24 92/60 L 97 06/10/24 11:30 99 H 25 H 74/52 L 95 06/10/24 11:19 102 H 28 H 74/50 L 95 06/10/24 11:15 104 H 71/45 L 92 06/10/24 11:00 95 H 83/57 L 91 06/10/24 10:55 97 H 87/58 L 86 L 06/10/24 10:45 36.6 C 114 H 18 64/50 L 85 L O2 Del Method O2 Flow Rate 06/10/24 13:30 Nasal Cannula 4 06/10/24 13:15 Nasal Cannula 4 06/10/24 13:00 Room Air 06/10/24 12:58 Nasal Cannula 4 06/10/24 12:45 Nasal Cannula 4 06/10/24 12:30 Nasal Cannula 4 06/10/24 12:26 06/10/24 12:15 Nasal Cannula 4 06/10/24 12:00 Nasal Cannula 4 06/10/24 11:45 Nasal Cannula 4 06/10/24 11:30 Nasal Cannula 4 06/10/24 11:19 Nasal Cannula 4 06/10/24 11:15 Nasal Cannula 4 06/10/24 11:00 Nasal Cannula 4 06/10/24 10:55 Room Air 06/10/24 10:45 Room Air Laboratory Results 06/10/24 11:04 06/10/24 11:04 Coding Level of Care Code 81189 CRITICAL CARE 1ST 30-74M Diagnoses History of prostate cancer Z85.46 Diabetes mellitus E11.9 Pneumonia J18.9 Septic shock A41.9; R65.21 Prostate cancer metastatic to bone C61; C79.51 Hyperlipidemia E78.5 CAD (coronary artery disease) I25.10 Hx of gout Z87.39 INA (acute kidney injury) N17.9
[2024-06-10] MEDS ORDERED: DEXTROSE 50% 50 ML SYRINGE IV PRN (14:57)
[2024-06-10] MEDS ORDERED: CARBOHYDRATES FOR HYPOGLYCEMIA PO PRN (14:57)
[2024-06-10] MEDS ORDERED: GLUCOSE 10 TAB/TUBE PO PRN (14:57)
[2024-06-10] MEDS ORDERED: GLUCOSE 40% GEL 15 GM TUBE PO PRN (14:57)
[2024-06-10] MEDS ORDERED: GLUCAGON FOR INJ 1 MG VIAL SQ PRN (14:57)
[2024-06-10 15:02] LABS: Phosphorus 2.4 mg/dl (2.5-4.9)
[2024-06-10 15:17] LABS: Thyroid Stimulating Hormone 3.857 uIu/ml (0.300-4.500)
[2024-06-10] MEDS: PLASMA-LYTE A 500 ML IV ONE (15:21)
[2024-06-10] MEDS: ACETAMINOPHEN 325 MG TAB PO PRN (15:21)
[2024-06-10] MEDS: HEPARIN SOD 5,000 UNIT/0.5 ML VIAL SQ SCH (15:30)
--- NOTE | 2024-06-10 15:58 | Ultrasound Report ---
US venous doppler LE RT HISTORY: 78 years-old Male Rule out DVT acute pain and swelling of the right lower leg COMPARISON: None TECHNIQUE: Multiple real-time sonographic images of the right lower extremity deep venous structures were obtained assessing grayscale appearance, color and spectral flow. FINDINGS: Normal flow, compressibility, phasicity and augmentation. IMPRESSION: No sonographic evidence of deep venous thrombosis. ACT 112: Negative or not required by law. The above report was generated using voice recognition software. It may contain grammatical, syntax o r spelling errors. Electronically signed by: Michael Rosenbaum M.D. 06/10/2024 3:57 PM
[2024-06-10] MEDS ORDERED: POTASSIUM PHOS 3 MMOL/1 ML INFUSION IV STA (16:08)
[2024-06-10] MEDS ORDERED: ICU Protocol for HYPERglycemia SCH (16:30)
[2024-06-10] MEDS: PLASMA-LYTE A 500 ML IV SCH (16:36)
[2024-06-10] MEDS: HYDROCORTISONE SOD 100 MG in SYRINGE 0 ML IV STA (16:37)
[2024-06-10] MEDS: FAMOTIDINE 20MG IV PUSH 20 MG/5 ML SYR IV SCH (16:37)
[2024-06-10] MEDS: INSULIN ASPART PER UNIT CHARGE SC SCH ×2 (16:41→21:28)
[2024-06-10] MEDS: MAGNESIUM SULFATE / D5W 1 GM/100 ML BAG IV SCH (16:52)
[2024-06-10] MEDS: POTASSIUM PHOSPHATE 21 MMOL in SODIUM CHLORIDE 0.9% 500 ML IV ONE (17:33)
[2024-06-10 18:01] LABS: Creatinine Urine Random 100.8 mg/dl; Potassium Random Urine 54.9 mmol/L
[2024-06-10 18:03] LABS: Appearance Urine Clear (Clear); Bacteria Urine Automated None Seen (None Seen); Bilirubin Urine Negative (Negative); Blood Urine Negative (Negative); Color Urine Yellow; Glucose Urine UA Negative (Negative); Granular Casts Urine Present /lpf (None Prsent); Hyaline Casts Urine Present /lpf (None Presnt); Ketones Urine Trace (Negative); Leukocyte Esterase Urine Negative (Negative); Nitrite Urine Negative (Negative); Protein Urine Trace (Negative); Specific Gravity Urine 1.014 (1.000-1.030); Urobilinogen Urine Negative (Negative); WBC Urine Automated 0-5 /hpf (0-5); pH Urine 5.5 (4.5-7.5)
--- NOTE | 2024-06-10 18:25 | Electrocardiogram Report ---
Test Reason : Blood Pressure : */* mmHG Vent. Rate : 99 BPM Atrial Rate : 99 BPM P-R Int : 190 ms QRS Dur : 80 ms QT Int : 328 ms P-R-T Axes : 15 13 25 degrees QTcB Int : 420 ms Normal sinus rhythm Normal ECG When compared with ECG of 27-Jun-2023 11:39, Vent. rate has increased by 40 bpm Confirmed by Pk Gomez ([id number]) on 06/10/2024 6:25:02 PM Referred By: REFERRED SELF Confirmed By: Pk Gomez
[2024-06-10] MEDS: guaiFENesin 600 MG TABCR PO SCH (19:58)
[2024-06-10] MEDS: SIMVASTATIN 40 MG TAB PO SCH (19:58)
[2024-06-10] MEDS ORDERED: predniSONE 5 MG TAB PO SCH (21:00)
[2024-06-10] MEDS: INSULIN REGULAR 250 UNITS in SODIUM CHLORIDE 0.9% 247.5 ML IV SCH (21:24)
[2024-06-10] MEDS: SODIUM CHLORIDE 0.9% 500 ML IV SCH (21:24)
[2024-06-10] MEDS: NovoLIN-R BOLUS FROM BAG IV ONE (21:27)
[2024-06-10] MEDS: INSULIN PROTOCOL GOAL RANGE ONE (21:27)
[2024-06-10] MEDS: HYDROCORTISONE SOD 50 MG in SYRINGE 0 ML IV SCH (22:39)
[2024-06-11 04:51] LABS: Basophils # (auto) 0.03 K/uL (0.00-0.20); Basophils % (auto) 0.2 %; Hematocrit (blood only) 35.8 % (42.0-52.0); Hemoglobin 11.5 g/dl (14.0-18.0); Immature Granulocytes # (auto) 0.07 K/uL (0.01-0.20); Immature Granulocytes % (auto) 0.5 %; Lymphocytes # (auto) 0.88 K/uL (1.20-3.40); Lymphocytes % (auto) 6.5 %; Mean Corpuscular Hemoglobin 31.5 pg (25.0-34.0); Mean Corpuscular Hgb Conc 32.1 g/dL (32.0-36.0); Mean Corpuscular Volume 98.1 fL (80.0-100.0); Mean Platelet Volume 11.4 fL (9.4-12.4); Monocytes # (auto) 0.45 K/uL (0.11-0.59); Monocytes % (auto) 3.3 %; Neutrophils # (auto) 12.09 K/uL (1.40-6.50); Neutrophils % (auto) 89.5 %; Platelet Count 165 K/uL (130-400); RDW Coefficient of Variation 14.6 % (11.5-14.5); RDW Standard Deviation 52.6 fL (36.4-46.3); Red Blood Count 3.65 M/uL (4.70-6.10); White Blood Count 13.52 K/ul (4.8-10.8)
[2024-06-11 05:30] LABS: BUN Creatinine Ratio 20.9 (10-20); Calcium 8.4 mg/dl (8.6-10.3); Creatinine Clr Calc Pharmacy 78.7 ml/min; Magnesium 2.2 mg/dl (1.7-2.4); Phosphorus 2.7 mg/dl (2.5-4.9); Potassium 3.7 mmol/L (3.5-5.1)
[2024-06-11] MEDS: POTASSIUM CHLORIDE / WTR 10 MEQ/100 ML PLCT IV SCH (06:55)
--- NOTE | 2024-06-11 07:13 | Critical Care Progress Note ---
Date of Service June 11, 2024 Assessment & Plan (1) History of prostate cancer: (2) Diabetes mellitus: (3) Pneumonia: (4) Septic shock: (5) Prostate cancer metastatic to bone: (6) Hyperlipidemia: (7) CAD (coronary artery disease): (8) Hx of gout: (9) INA (acute kidney injury): Plan Reason Critically Ill: 78-year-old male present to the hospital for cough and rigors. Transferred to ICU as he needed vasopressors Past medical history: Type 2 diabetes, hypertension, dyslipidemia, prostate cancer Neuro - [facility]: Negative Cardiac - -- S/p shock Likely septic from pneumonia Also is on chronic prednisone. On stress dose hydrocortisone --History of hypertension Hold home blood pressure medication --Bilateral lower extremity edema R>L Venous Doppler right lower extremity negative for DVT Respiratory - -- S/p acute hypoxic respiratory failure Likely secondary to left lower lobe pneumonia Respiratory BioFire negative for everything on 06/10/2024 Continue with O2 supplementation to keep oxygen saturation between 90-92% Chest x-ray 06/10/2024 personally reviewed: Portable film, poor inspiratory effort, retrocardiac opacity appreciated, bilateral costophrenic angles are clean --Ex-smoker [id number] smoking history Quit a long time ago GI - -- Nausea prior to coming to the hospital Continue with as needed ondansetron RENAL/LYTES - -- INA Likely secondary to hypotension Monitor BUN/creatinine Avoid nephrotoxic medications Strict ins and outs - -- History of prostate cancer PET/CT 09/2023 showed residual radiotracer uptake in the right humeral and right Acetabular lesions On abiraterone and prednisone 5 mg twice daily at home ENDO - -- ICU hypoglycemia protocol HEME - -- Normocytic anemia Monitor H&H ID - -- Left lower lobe pneumonia Respiratory BioFire negative for everything on 06/10/2024 Procalcitonin 8.45 Continue with Rocephin and Doxy --Prophylaxis VTE: Heparin GI: Pepcid Lines: Left-sided port, peripheral Diet: Cardiac diabetic Plan: In/out: +2.3 L, urine output 2950 Patient currently on insulin drip for non-DKA hyperglycemia. Will try to bridge the insulin to subcu. Decrease hydrocortisone to 50 mg Q8 for today and then 50 mg every 12 for 2 more days and then go back to patient's home dose of prednisone 5 mg twice daily Potassium being replaced Follow-up urine Legionella Patient hemodynamically stable to be downgrade to medical floor Case was discussed with primary team Please note the above document was generated using voice recognition software. It may contain grammatical, syntax or spelling errors.Any formal questions or concerns about the content, text or information contained within the body of this dictation should be directly addressed to the provider for clarification. Admission and Anticipated Discharge Date Admission Date: June 10, 2024 Subjective Patient seen and examined at bedside. No acute distress, no adverse events overnight He has been off of Levophed since yesterday evening. His systolic blood pressure was in the 140s, he was saturating 94% on room air He stated that he is feeling much better compared to when he came to the hospital Still complaining of cough and bringing up clear phlegm. Denies any hemoptysis No pleuritic chest pain Fair appetite, no nausea vomiting Urinating well Review of Systems 2 Review of Systems: All systems reviewed & are unremarkable except as noted in Subjective Physical Exam 2 Physical Exam: Constitutional: No acute distress HEENT: EOMI, PERRLA Respiratory system: Decreased air entry bilaterally, no wheeze, no rhonchi, positive crackles left lower lobe CVS: S1-S2 positive, no murmurs or gallops Abdomen: Soft, nontender, nondistended, positive bowel sounds x4, obese Extremities: +2 pulses bilaterally radialis/ dorsalis pedis, no cyanosis, +2 pitting edema right lower extremity Neuro: Awake alert oriented x3 Psych: Normal mood and affect G/U: No Pierson Skin: no rashes, warm and dry Lymphatic: no cervical or axillary lymphadenopathy Results & Data Results & Data Vital Signs (Past 12 Hours) Vital Signs Temp Pulse Resp BP Pulse Ox O2 Del Method O2 Flow Rate 06/11/24 05:30 78 20 95 06/11/24 05:30 125/74 06/11/24 05:30 125/74 06/11/24 05:21 86 18 93 06/11/24 05:00 128/91 06/11/24 05:00 36.9 C 06/11/24 04:57 80 20 94 06/11/24 04:30 74 17 94 06/11/24 04:30 121/69 06/11/24 04:30 121/69 06/11/24 04:06 77 4 L 95 06/11/24 04:00 114/72 06/11/24 04:00 114/72 06/11/24 03:51 88 17 87 L 06/11/24 03:33 76 17 95 06/11/24 03:30 128/79 06/11/24 03:18 76 17 95 06/11/24 03:15 77 16 95 06/11/24 03:00 115/70 06/11/24 02:54 78 18 95 06/11/24 02:39 81 14 93 06/11/24 02:30 119/67 06/11/24 02:18 80 15 95 06/11/24 02:12 79 17 95 06/11/24 02:00 95/67 L 06/11/24 02:00 95/67 L 06/11/24 01:30 79 15 95 06/11/24 01:30 106/74 06/11/24 01:30 106/74 06/11/24 01:00 78 11 L 94 06/11/24 01:00 112/66 06/11/24 00:39 82 20 94 06/11/24 00:30 121/72 06/11/24 00:30 121/72 06/11/24 00:24 80 22 97 06/11/24 00:12 83 18 96 06/11/24 00:00 123/73 06/11/24 00:00 123/73 06/10/24 23:54 81 16 97 06/10/24 23:30 140/84 06/10/24 23:30 140/84 06/10/24 23:30 84 20 96 06/10/24 23:00 83 19 96 06/10/24 23:00 135/81 06/10/24 23:00 135/81 06/10/24 23:00 135/81 06/10/24 22:30 119/74 06/10/24 22:30 119/74 06/10/24 22:30 119/74 06/10/24 22:30 85 23 95 06/10/24 22:15 87 22 95 06/10/24 22:00 130/85 06/10/24 22:00 130/85 06/10/24 21:54 87 24 92 06/10/24 21:30 88 21 94 06/10/24 21:30 132/77 06/10/24 21:30 132/77 06/10/24 21:00 81 20 95 06/10/24 21:00 128/77 06/10/24 21:00 128/77 06/10/24 20:31 156/95 H 06/10/24 20:31 156/95 H 06/10/24 20:30 96 H 20 99 06/10/24 20:03 84 18 97 06/10/24 20:01 114/81 06/10/24 20:01 114/81 06/10/24 20:00 Nasal Cannula 4 06/10/24 20:00 85 21 97 06/10/24 19:40 116/72 06/10/24 19:40 116/72 06/10/24 19:39 84 23 94 06/10/24 19:30 90 22 96 Laboratory Results 06/11/24 04:24 06/11/24 04:24 Coding Level of Care Code 41802 SUB INP/OBS CARE 3/50MIN Diagnoses History of prostate cancer Z85.46 Diabetes mellitus E11.9 Pneumonia J18.9 Septic shock A41.9; R65.21 Prostate cancer metastatic to bone C61; C79.51 Hyperlipidemia E78.5 CAD (coronary artery disease) I25.10 Hx of gout Z87.39 INA (acute kidney injury) N17.9
[2024-06-11] MEDS: ASPIRIN 81 MG ECTAB PO SCH (07:58)
[2024-06-11] MEDS: CHOLECALCIFEROL 25 MCG (1000 UNITS) TAB PO SCH (07:58)
[2024-06-11] MEDS: CALCIUM CARBONATE 500 MG CHEWABLE TAB PO SCH (07:58)
[2024-06-11] MEDS: LORATADINE 10 MG TAB PO SCH (07:58)
[2024-06-11] MEDS: CALCIUM CARBONATE 1250MG TAB PO SCH (07:59)
[2024-06-11 08:13] LABS: Estimated Average Glucose 220 mg/dl; Hemoglobin A1C 9.3 % (4.5-5.6)
[2024-06-11] MEDS ORDERED: PHARMACY GLYCEMIC MGMT CONSULT PRN (09:54)
--- NOTE | 2024-06-11 10:11 | Hospitalist Progress Note ---
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 Septic shock has resolved, can transfer out of the ICU Patient placed on stress dose steroids, significant hyperglycemia, being managed by IV insulin drip. Continue titration of insulin and continue with pharmacy consultation for diabetes management Continue current antibiotics for pneumonia, WBCs improved Activity as tolerated Patient's blood pressure now is actually elevated, resume metoprolol with hold parameters Anticipate continued improvement with possible discharge in 1 to 2 days. Admission and Anticipated Discharge Date Admission Date: June 10, 2024 Subjective Patient reports feeling significantly improved. No shortness of breath. Physical Exam Physical Exam: Constitutional: Alert, nontoxic HEENT: Mucous membranes moist. Lungs: Decreased breath sounds, coarse rhonchi throughout CV: S1-S2, regular, poor access left chest Abdomen: Soft, nontender, nondistended Extremities: No significant edema Neuro: No focal deficits Psych: Cooperative, normal mood Results & Data Results & Data Vital Signs (Past 12 Hours) Vital Signs Temp Pulse Pulse Resp BP BP Pulse Ox 06/11/24 08:15 74 23 94 06/11/24 08:00 146/89 H 06/11/24 08:00 146/89 H 06/11/24 08:00 06/11/24 08:00 78 06/11/24 08:00 06/11/24 07:57 76 22 92 06/11/24 07:36 80 19 94 06/11/24 07:03 78 24 91 06/11/24 07:00 132/80 06/11/24 07:00 37.0 C 70 20 132/80 93 06/11/24 06:54 73 21 92 06/11/24 06:30 106/64 06/11/24 06:27 82 21 93 06/11/24 06:06 76 17 92 06/11/24 06:01 132/80 06/11/24 05:36 80 19 94 06/11/24 05:30 78 20 95 06/11/24 05:30 125/74 06/11/24 05:30 125/74 06/11/24 05:21 86 18 93 06/11/24 05:00 128/91 06/11/24 05:00 36.9 C 06/11/24 04:57 80 20 94 06/11/24 04:30 74 17 94 06/11/24 04:30 121/69 06/11/24 04:30 121/69 06/11/24 04:06 77 4 L 95 06/11/24 04:00 114/72 06/11/24 04:00 114/72 06/11/24 03:51 88 17 87 L 06/11/24 03:33 76 17 95 06/11/24 03:30 128/79 06/11/24 03:18 76 17 95 06/11/24 03:15 77 16 95 06/11/24 03:00 115/70 06/11/24 02:54 78 18 95 06/11/24 02:39 81 14 93 06/11/24 02:30 119/67 06/11/24 02:18 80 15 95 06/11/24 02:12 79 17 95 06/11/24 02:00 95/67 L 06/11/24 02:00 95/67 L 06/11/24 01:30 79 15 95 06/11/24 01:30 106/74 06/11/24 01:30 106/74 06/11/24 01:00 78 11 L 94 06/11/24 01:00 112/66 06/11/24 00:39 82 20 94 06/11/24 00:30 121/72 06/11/24 00:30 121/72 06/11/24 00:24 80 22 97 06/11/24 00:12 83 18 96 06/11/24 00:00 123/73 06/11/24 00:00 123/73 06/10/24 23:54 81 16 97 06/10/24 23:30 140/84 06/10/24 23:30 140/84 06/10/24 23:30 84 20 96 06/10/24 23:00 83 19 96 06/10/24 23:00 135/81 06/10/24 23:00 135/81 06/10/24 23:00 135/81 06/10/24 22:30 119/74 06/10/24 22:30 119/74 06/10/24 22:30 119/74 06/10/24 22:30 85 23 95 06/10/24 22:15 87 22 95 O2 Del Method 06/11/24 08:15 06/11/24 08:00 06/11/24 08:00 06/11/24 08:00 Room Air 06/11/24 08:00 06/11/24 08:00 Room Air 06/11/24 07:57 06/11/24 07:36 06/11/24 07:03 06/11/24 07:00 06/11/24 07:00 Room Air 06/11/24 06:54 06/11/24 06:30 06/11/24 06:27 06/11/24 06:06 06/11/24 06:01 06/11/24 05:36 06/11/24 05:30 06/11/24 05:30 06/11/24 05:30 06/11/24 05:21 06/11/24 05:00 06/11/24 05:00 06/11/24 04:57 06/11/24 04:30 06/11/24 04:30 06/11/24 04:30 06/11/24 04:06 06/11/24 04:00 06/11/24 04:00 06/11/24 03:51 06/11/24 03:33 06/11/24 03:30 06/11/24 03:18 06/11/24 03:15 06/11/24 03:00 06/11/24 02:54 06/11/24 02:39 06/11/24 02:30 06/11/24 02:18 06/11/24 02:12 06/11/24 02:00 06/11/24 02:00 06/11/24 01:30 06/11/24 01:30 06/11/24 01:30 06/11/24 01:00 06/11/24 01:00 06/11/24 00:39 06/11/24 00:30 06/11/24 00:30 06/11/24 00:24 06/11/24 00:12 06/11/24 00:00 06/11/24 00:00 06/10/24 23:54 06/10/24 23:30 06/10/24 23:30 06/10/24 23:30 06/10/24 23:00 06/10/24 23:00 06/10/24 23:00 06/10/24 23:00 06/10/24 22:30 06/10/24 22:30 06/10/24 22:30 06/10/24 22:30 06/10/24 22:15 Diagnostic Findings Reviewed imaging, laboratory and diagnostic studies. Pertinent findings as below. WBCs 13.5, improved Hemoglobin 0.5 Electrolytes stable Glucoses reviewed, Hemoglobin A1c 9.3%
[2024-06-11] MEDS: DOXYCYCLINE HYCLATE 100 MG CAP PO SCH (10:28)
[2024-06-11] MEDS: cefTRIAXone SODIUM 2,000 MG/50 ML BAG IV SCH (10:28)
[2024-06-11] MEDS: LANTUS PER UNIT CHARGE SC ONE ×2 (10:28→19:49)
[2024-06-11] MEDS: METOPROLOL SUCC 25MG EXT REL TAB PO SCH (11:03)
--- NOTE | 2024-06-11 11:48 | Pharmacy Report ---
Pharmacy Glycemic Short Note 2 - Date of Service June 11, 2024 - Glycemic Short BSG Results (Last 24 hours): 06/10/24 06/10/24 06/10/24 11:04 16:24 19:48 Glucose 253 H POC Glucose 257 H 324 H* 06/10/24 06/10/24 06/10/24 19:50 21:23 22:29 Glucose POC Glucose 296 H 294 H 279 H 06/10/24 06/11/24 06/11/24 23:26 00:25 01:26 Glucose POC Glucose 228 H 215 H 200 H 06/11/24 06/11/24 06/11/24 02:25 03:27 04:24 Glucose 154 H POC Glucose 173 H 169 H 06/11/24 06/11/24 06/11/24 04:27 06:28 07:08 Glucose POC Glucose 159 H 133 H 123 H 06/11/24 06/11/24 06/11/24 08:28 09:22 10:23 Glucose POC Glucose 174 H 163 H 159 H 06/11/24 11:06 Glucose POC Glucose 132 H OUTPATIENT ANTIDIABETIC REGIMEN: * Metformin * HbA1c 9.3% on 06/11/24 ASSESSMENT: * 78 yo M with T2DM admitted with septic shock 2nd CAP. Norepinephrine initiated yesterday but titrated off today. Stress dose steroids initiated due to outpatient prednisone. Ongoing hydrocortisone planned for three days, but with planned decrease in dose tomorrow. After completion of hydrocortisone, then plan to resume home prednisone 11 AM * Insulin drip initiated 06/10 PM for hyperglycemia, likely steroid induced * Discussed on ICU rounds - OK to transition off insulin drip to basal/bolus per Dr. Gary * Will initiate Lantus with attempt to transition off drip. Will give supplemental Lantus this evening if the insulin drip is still running * Will initiate weight-based Novolog at slightly looser than severe stress estimate PLAN FOR INPATIENT GLYCEMIC CONTROL: * Hold outpatient oral diabetes medications * Continue insulin drip and titrate per protocol. * OK to stop at 2100 tonight. * OK to stop as soon as 1630 if BSG's < 180 mg/dL x2 and insulin drip < 1 unit/hr * Basal insulin * Lantus 35 units SQ x1. Additional 10 units at 2000 if insulin drip still running * Bolus insulin (while drip running) * Nutritional / Prandial insulin per carb ratio of 1 unit per 6 grams CHO consumed * Bolus insulin (after drip discontinued) * NovoLog per scale ACHS or Q6hrs while NPO * Goal Range: Low 120 mg/dL - High 150 mg/dL * Correction Factor: 20 mg/dL/unit * Nutritional / Prandial insulin per carb ratio of 1 unit per 6 grams CHO consumed
[2024-06-11] MEDS: ABIRATERONE ACETATE PO SCH (12:44)
[2024-06-11] MEDS: HYDROCORTISONE SOD 50 MG in SYRINGE 0 ML IV SCH (13:59)
[2024-06-11] MEDS: INSULIN ASPART PER UNIT CHARGE SC SCH ×2 (21:11→23:57)
[2024-06-11] MEDS ORDERED: Nursing to Pharmacy Communication SCH (23:45)
[2024-06-12 07:05] VITALS: RESP 17; O2SAT 93
[2024-06-12 07:28] LABS: Basophils # (auto) 0.01 K/uL (0.00-0.20); Basophils % (auto) 0.1 %; Eosinophils # (auto) 0.03 K/uL (0.00-0.50); Eosinophils % (auto) 0.3 %; Hematocrit (blood only) 36.8 % (42.0-52.0); Hemoglobin 11.9 g/dl (14.0-18.0); Immature Granulocytes # (auto) 0.07 K/uL (0.01-0.20); Immature Granulocytes % (auto) 0.6 %; Lymphocytes # (auto) 1.38 K/uL (1.20-3.40); Lymphocytes % (auto) 12.5 %; Mean Corpuscular Hemoglobin 31.2 pg (25.0-34.0); Mean Corpuscular Hgb Conc 32.3 g/dL (32.0-36.0); Mean Corpuscular Volume 96.6 fL (80.0-100.0); Mean Platelet Volume 11.1 fL (9.4-12.4); Monocytes # (auto) 0.54 K/uL (0.11-0.59); Monocytes % (auto) 4.9 %; Neutrophils # (auto) 8.98 K/uL (1.40-6.50); Neutrophils % (auto) 81.6 %; Platelet Count 175 K/uL (130-400); RDW Coefficient of Variation 14.4 % (11.5-14.5); Red Blood Count 3.81 M/uL (4.70-6.10); White Blood Count 11.01 K/ul (4.8-10.8)
[2024-06-12 08:11] LABS: BUN Creatinine Ratio 24.1 (10-20); Calcium 8.1 mg/dl (8.6-10.3); Creatinine Clr Calc Pharmacy 90.5 ml/min; Phosphorus 2.1 mg/dl (2.5-4.9); Potassium 3.5 mmol/L (3.5-5.1)
[2024-06-12] MEDS: LANTUS PER UNIT CHARGE SC SCH (08:36)
[2024-06-12] MEDS: TAMSULOSIN HCL 0.4 MG CAP PO SCH (08:42)
[2024-06-12] MEDS: HYDROCORTISONE SOD 50 MG in SYRINGE 0 ML IV SCH (08:47)
[2024-06-12 10:32] VITALS: BP 135/81; PULSE 64; TEMP 97.9
--- NOTE | 2024-06-12 10:50 | Discharge Summary ---
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 In the emergency room workup was significant for evid ence of septic shock due to pneumonia. Patient was admitted to the ICU, he report required IV pressors for short period of time. With IV hydration and antibiotic management his blood pressure stabilized. By the following day he had significantly improved and could be transferred out of the ICU. Continued on antibiotics. His WBCs essentially normalized. He had no fevers. Blood pressures improved and stabilized. He was given stress dose hydrocortisone while in the ICU for the fact that he is on chronic prednisone associated with his treatment for his prostate cancer. Also he was seen by museum educator while here in the hospital noted that his hemoglobin A1c had increased to 9.3% when compared to previous readings. Is instructed to check his glucose more regular but continue his usual diabetes medicines. On day of discharge sitting up in the chair. He is on room air. He is feeling stronger. He be converted to oral antibiotics and discharged home for ongoing recovery at home. Notes For Next Care Provider Continue ongoing evaluation of diabetes and adjustments of medications as needed Medication Changes From Visit Omnicef and doxycycline for pneumonia Guaifenesin for cough and congestion Admission HPI Per Admitting Provider 78-year-old man with hypertension, DM type II, prostate cancer hyperlipidemia who presents to the ER complaining of cough that started yesterday. History provided by patient and at bedside. Patient reported that yesterday, he started some cough with weakness. Overnight he developed shaking chills and rigors. Had 1 episode of nonbloody vomiting and loose bowel movement. Reported feeling feverish but temp not measured. Noted to be increasingly weak and unsteady on his feet Denies any chest pain, headache Denies abdominal pain. Admission Exam Per Admitting Provider See H&P Discharge Exam Constitutional: Alert, nontoxic, sitting in chair HEENT: Mucous membranes moist. Lungs: Decreased, significantly improved airflow, rhonchi significantly improved CV: S1-S2, regular Abdomen: Soft, nontender, nondistended Extremities: No significant edema Neuro: No focal deficits Psych: Cooperative, normal mood Updated Medication List Medication Instructions Recorded Confirmed Type allopurinol 300 mg tablet 300 mg PO HS 05/29/22 06/10/24 History ascorbic acid (vitamin C) 500 mg 500 mg PO QAM 05/29/22 06/10/24 History tablet,extended release (Vitamin C ER) cholecalciferol (vitamin D3) 25 25 mcg PO QAM 05/29/22 06/10/24 History mcg (1,000 unit) tablet (Vitamin D3) coenzyme Q10 100 mg capsule (Co 100 mg PO QAM 05/29/22 06/10/24 History Q-10) cyanocobalamin (vitamin B-12) 500 500 mcg PO QAM 05/29/22 06/10/24 History mcg tablet garlic 1,000 mg capsule 1,000 mg PO QAM 05/29/22 06/10/24 History lactobacillus combination no.4 3 3,000 mmu cells PO QAM 05/29/22 06/10/24 History billion cell capsule (Probiotic) metformin 500 mg tablet 500 mg PO BID 05/29/22 06/10/24 History metoprolol succinate 25 mg 25 mg PO BID 05/29/22 06/10/24 History tablet,extended release 24 hr simvastatin 40 mg tablet 40 mg PO HS 05/29/22 06/10/24 History aspirin 81 mg tablet,delayed 81 mg PO QAM 04/25/23 06/10/24 History release (Adult Aspirin Regimen) omega-3 fatty acids 500 mg capsule 500 mg PO DAILY 04/25/23 06/10/24 History tamsulosin 0.4 mg capsule 0.4 mg PO QAM 04/25/23 06/10/24 History calcium carbonate 1,200 mg PO QAM 06/27/23 06/10/24 History glucosamine-chondroitin 250 mg-200 2 tab PO QAM 06/27/23 06/10/24 History mg tablet (Osteo Bi-Flex) prednisone 5 mg tablet 5 mg PO BID 06/27/23 06/10/24 History nitroglycerin 0.4 mg sublingual 0.4 mg sublingual Q5M PRN Chest 07/05/23 06/10/24 History tablet (Nitrostat) Pain abiraterone 250 mg tablet (Zytiga) 1,000 mg PO QAM 10/01/23 06/10/24 History loratadine 10 mg tablet (Claritin) 10 mg PO QAM 10/01/23 06/10/24 History ofloxacin 0.3 % ear drops 10 drp otic (ear) DAILY 7 days #10 03/10/24 06/10/24 Rx mL blood sugar diagnostic (OneTouch #100 ea 06/12/24 Rx Verio test strips) blood-glucose meter (OneTouch #1 ea 06/12/24 Rx Verio Flex Meter) cefdinir 300 mg capsule 300 mg PO BID 5 days #10 caps 06/12/24 Rx doxycycline hyclate 100 mg capsule 100 mg PO BID 5 days #10 caps 06/12/24 Rx guaifenesin 600 mg tablet, 600 mg PO Q12 PRN Congestion #30 06/12/24 Rx extended release 12 hr (Mucinex) tabs lancing device with lancets kit #1 06/12/24 Rx (OneTouch Delica Plus Lancing Device kit) Hospital Stay Data Consultations 06/10/24 12:48 ED Decision to Admit Stat 06/10/24 14:57 Consult Cuff Slitter Routine Diagnostic Imagining Performed 06/10/24 13:28 US venous doppler LE RT Routine Reviewed imaging, laboratory and diagnostic studies. Pertinent findings as below. Blood cultures no growth to date Hemoglobin A1c 9.3 Electrolytes within normal range Creatinine 0.79 WBCs 11.0, improved Hemoglobin 11.9, stable TSH 3.8 Pending Results Patient Have Any Pending Studies at Discharge: Yes (Final blood cultures) Discharge Instructions Given to Patient (Per Discharging Provider) Recommend checking your glucose once a day, keep a log and bring to your primary care provider follow-up appointment Complete course of antibiotics Reviewing the steroids you received here in the hospital you do not need any additional/higher dose steroids at discharge. Resume your prednisone dosing as previous Total Time Total Time Spent Total Time Spent (In Minutes): 33
[2024-06-12] MEDS ORDERED: HYDROCORTISONE SOD 50 MG in SYRINGE 0 ML IV SCH (22:00)
[2024-06-14] MEDS ORDERED: predniSONE 5 MG TAB PO SCH (09:00)
[2024-06-14] MEDS ORDERED: HYDROCORTISONE SOD 50 MG in SYRINGE 0 ML IV SCH (22:00)
== END 2024-06-12 12:34 | disposition home or self-care (01) | DRG 871 ==
LOC: ED 10:34 → SUATTDRO 13:14 → 1E 13:14 → 2S 06-11 19:31

== ENCOUNTER 2025-04-01 15:01 | Inpatient (IN) ==
[2025-04-01 16:17] LABS: Hematocrit (blood only) 44.2 % (42.0-52.0); Hemoglobin 14.2 g/dl (14.0-18.0); Immature Granulocytes # (auto) 0.05 K/uL (0.01-0.20); Immature Granulocytes % (auto) 0.5 %; Mean Corpuscular Hemoglobin 30.3 pg (25.0-34.0); Mean Corpuscular Volume 94.4 fL (80.0-100.0); Platelet Count 216 K/uL (130-400); RDW Standard Deviation 51.7 fL (36.4-46.3); Red Blood Count 4.68 M/uL (4.70-6.10); White Blood Count 10.83 K/ul (4.8-10.8)
[2025-04-01 16:40] LABS: Alanine Aminotransferase 23 U/L (7-52); Albumin Globulin Ratio 1.7 (0.9-2); Alkaline Phosphatase 62 U/L (34-104); Anion Gap 12 (3-11); Bilirubin,Total 1.3 mg/dl (0.2-1.0); Blood Urea Nitrogen 18 mg/dl (6-23); Calcium 10.4 mg/dl (8.6-10.3); Carbon Dioxide 27 mmol/L (21-32); Chloride 100 mmol/L (98-107); Globulin 2.6 gm/dl (2.5-4.0); Glucose 164 mg/dl (70-99(Fasting)); Potassium 4.7 mmol/L (3.5-5.1); Sodium 139 mmol/L (136-145); Total Protein 6.9 gm/dl (6.0-8.3)
--- NOTE | 2025-04-01 19:14 | Emergency Department Note ---
History of Present Illness General Chief complaint: Hypotension Stated complaint: LIGHT HEADED BP Time Seen by Provider: 04/01/25 19:05 History of Present Illness This is a 79-year-old male who presents to the emergency department via private vehicle with complaints of "lightheadedness, low blood pressure". History obtained from patient and at bedside. They note earlier today the patient was pressure washing the garage floor. He seemed to do this without issue. He then went in the house and was writing a list of items to purchase at a store and began to feel that he was going to "pass out". He noted vision was going "in and out". This was around 2:30 PM today. They then presented for further assessment. They do note blood pressure at home was 139/53. at bedside notes concern as the patient has history of sepsis and per review of the EMR has diagnosis of septic shock. The patient denies any speech trouble. He feels overall weak/tired but diffusely and not unilaterally. No vision change at this time. Home Medications Medication Instructions Recorded Confirmed Type allopurinol 300 mg tablet 300 mg PO HS 05/29/22 04/01/25 History ascorbic acid (vitamin C) 500 mg 500 mg PO QAM 05/29/22 04/01/25 History tablet,extended release (Vitamin C ER) coenzyme Q10 100 mg capsule (Co 100 mg PO QAM 05/29/22 04/01/25 History Q-10) cyanocobalamin (vitamin B-12) 500 500 mcg PO QAM 05/29/22 04/01/25 History mcg tablet garlic 1,000 mg capsule 1,000 mg PO QAM 05/29/22 04/01/25 History lactobacillus combination no.4 3 6,000 mmu cells PO QAM 05/29/22 04/01/25 History billion cell capsule (Probiotic) metformin 500 mg tablet 1,000 mg PO BID 05/29/22 04/01/25 History metoprolol succinate 25 mg 12.5 mg PO DAILY 05/29/22 04/01/25 History tablet,extended release 24 hr simvastatin 40 mg tablet 40 mg PO HS 05/29/22 04/01/25 History aspirin 81 mg tablet,delayed 81 mg PO QAM 04/25/23 04/01/25 History release (Adult Aspirin Regimen) tamsulosin 0.4 mg capsule 0.4 mg PO QAM 04/25/23 04/01/25 History calcium carbonate 1,200 mg PO QAM 06/27/23 04/01/25 History prednisone 5 mg tablet 5 mg PO BID 06/27/23 04/01/25 History nitroglycerin 0.4 mg sublingual 0.4 mg sublingual Q5M PRN Chest 07/05/23 04/01/25 History tablet (Nitrostat) Pain abiraterone 250 mg tablet (Zytiga) 1,000 mg PO QAM 10/01/23 04/01/25 History loratadine 10 mg tablet (Claritin) 10 mg PO QAM 10/01/23 04/01/25 History blood sugar diagnostic (OneTouch #100 ea 06/12/24 Rx Verio test strips) blood-glucose meter (OneTouch #1 ea 06/12/24 Rx Verio Flex Meter) lancing device with lancets kit #1 ea 06/12/24 Rx ([employer] Delica Plus Lancing Device kit) gabapentin 300 mg capsule 300 mg PO TID PRN Pain 04/01/25 04/01/25 History glucosamine-chondroitin 250 mg-200 2 tab PO QAM 04/01/25 04/01/25 History mg tablet semaglutide 0.25 mg or 0.5 mg (2 0.5 mg subcut WK 04/01/25 04/01/25 History mg/3 mL) subcutaneous pen injector (Ozempic) Allergies Allergy/AdvReac Type Severity Reaction Status Date / Time chlorhexidine Allergy Mild rash Verified 04/01/25 20:12 metronidazole Allergy Mild Rash Verified 04/01/25 20:12 omeprazole Allergy Mild itch Verified 04/01/25 20:12 Past Med/Surg History Problem List (Updated 04/01/25 @ 21:34 by August Del Cid PA-C) Elevated troponin (Acute) Near syncope (Acute) Immunosuppression due to chronic steroid use INA (acute kidney injury) DVT prophylaxis History of prostate cancer Diabetes mellitus Pneumonia (Acute) Septic shock (Acute) Prostate cancer metastatic to bone (Chronic) Bladder stone BPH NOS w ur obs/LUTS Elevated PSA 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, left Encounter for pre-operative examination Prostate cancer with bony metastasis >new dx Diabetes mellitus, type 2 NIDDM Hypertension Hyperlipidemia CAD (coronary artery disease) - LA to LAD and balloon angioplasty to ramus intermedius January 2012 - Negative DSE 04/2022 Medical History Prostate cancer Hx of gout Diverticular disease History of skin cancer Surgical History Hx of cataract surgery Nausea and vomiting after administration of anesthetic agent H/O cystoscopy Port-A-Cath in place (06/28/23) H/O prostate biopsy History of knee replacement (~2021) S/P right inguinal hernia repair (08/17/09) History of colonoscopy (~2019) Hx of inguinal hernia repair (05/18/15) Hx of umbilical hernia repair (12/02/99) History of appendectomy (~1998) History of tooth extraction History of heart artery stent Family History Mother Diabetes Heart disease Hypertension Stroke Father Cancer Other No family history of adverse response to anesthesia Social History Smoking Status: Never smoker packs per day: 2; Second Hand Exposure: No; Do You Dip or Chew Tobacco: No; Hx Alcohol Use: No Hx Substance Use: No Preferred Language: Angolan Communication Ability: Effective Plisse Machine Operator Required: No Beliefs That Will Affect Care: None marital status: Current Living Situation: Spouse current occupational status: retired How many Children do You have: 2 Feels Safe at Home: Yes Diet: regular during the past year weight has: remained stable Assistive Devices: Cane and Glasses Review of Systems A total of 10 systems reviewed and were otherwise negative Physical Exam Vital Signs Vital Signs - 24 hr 04/01/25 15:36 04/01/25 19:10 04/01/25 20:58 Temperature 36.1 C L Temperature Source Temporal Artery Scan Pulse Rate 116 H 94 H Pulse Rate [Apical] 90 Pulse Rhythm [Apical] Regular Respiratory Rate 18 18 Respiratory Effort / Characteristics Non-Labored Spontaneous Respiratory Depth Normal Blood Pressure 131/83 Blood Pressure [Right Arm] 140/94 Blood Pressure Mean 99 Blood Pressure Mean [Right Arm] 109 Pulse Oximetry 96 100 Oxygen Delivery Method Room Air Room Air Sepsis Recent Fever Within 48 Hours No Sepsis New/Unexplained Change in Mental Status No Sepsis Action Taken by Nursing No Action Required 04/01/25 21:00 Temperature Temperature Source Pulse Rate Pulse Rate [Apical] 97 H Pulse Rhythm [Apical] Respiratory Rate 18 Respiratory Effort / Characteristics Respiratory Depth Blood Pressure Blood Pressure [Right Arm] 130/86 Blood Pressure Mean Blood Pressure Mean [Right Arm] 100 Pulse Oximetry 95 Oxygen Delivery Method Room Air Sepsis Recent Fever Within 48 Hours Sepsis New/Unexplained Change in Mental Status Sepsis Action Taken by Nursing VITAL SIGNS - Vital signs and nursing notes were reviewed. Stable and afebrile. GENERAL -79-year-old male appearing his stated age who is in no acute distress. Communicates well with provider and answers questions appropriately. SKIN - Without rashes. No meningeal or petechial rash. HEAD - NC/AT. EYES - PERRL with EOMI bilaterally. Sclera anicteric. EARS - No deformities of external structures noted on gross examination bilaterally. NOSE - No epistaxis or purulent drainage noted. MOUTH/OROPHARYNX - Without perioral cyanosis. NECK - Neck with FROM. No nuchal rigidity. LUNGS - CTA CARDIAC - RRR ABDOMEN - Abdominal contour normal without pulsations or visible masses. BS normoactive all four quadrants. No tenderness, palpable masses, hepatosplenomegaly, or ascites noted. EXTREMITIES - No clubbing or peripheral cyanosis. +5/5 strength noted in UE/LE bilaterally. NEUROLOGIC - Cranial nerves II through XII grossly intact. PSYCH -alert, oriented and pleasant on exam Medical Decision Making Laboratory Data 04/01/25 16:06 04/01/25 16:06 Lab Results 04/01/25 04/01/25 04/01/25 Range/Units 15:43 16:06 19:32 WBC 10.83 H (4.8-10.8) K/ul RBC 4.68 L (4.70-6.10) M/uL Hgb 14.2 (14.0-18.0) g/dl Hct 44.2 (42.0-52.0) % MCV 94.4 (80.0-100.0) fL MCH 30.3 (25.0-34.0) pg MCHC 32.1 (32.0-36.0) g/dL RDW Std Deviation 51.7 H (36.4-46.3) fL RDW Coeff of Ulices 14.9 H (11.5-14.5) % Plt Count 216 (130-400) K/uL MPV 11.5 (9.4-12.4) fL Immature Gran % (Auto) 0.5 % Neut % (Auto) 78.1 % Lymph % (Auto) 14.4 % [place] % (Auto) 6.5 % Eos % (Auto) 0.2 % Baso % (Auto) 0.3 % Neut # (Auto) 8.47 H (1.40-6.50) K/uL Lymph # (Auto) 1.56 (1.20-3.40) K/uL [place] # (Auto) 0.70 H (0.11-0.59) K/uL Eos # (Auto) 0.02 (0.00-0.50) K/uL Baso # (Auto) 0.03 (0.00-0.20) K/uL Immature Gran # (Auto) 0.05 (0.01-0.20) K/uL Sodium 139 (136-145) mmol/L Potassium 4.7 (3.5-5.1) mmol/L Chloride 100 (98-107) mmol/L Carbon Dioxide 27 (21-32) mmol/L Anion Gap 12 H (3-11) BUN 18 (6-23) mg/dl Creatinine 1.03 (0.6-1.4) mg/dl Est Cr Clr Drug Dosing Not Reportable eGFR 74.35 BUN/Creatinine Ratio 17.5 (10-20) Glucose 164 H (70-99(Fasting)) mg/dl POC Glucose 161 H (70-99) mg/dl Calcium 10.4 H (8.6-10.3) mg/dl Phosphorus 3.9 (2.5-4.9) mg/dl Magnesium 1.7 (1.7-2.4) mg/dl Total Bilirubin 1.3 H (0.2-1.0) mg/dl AST 22 (13-39) U/L ALT 23 (7-52) U/L Alkaline Phosphatase 62 (34-104) U/L Troponin I High Sens 63.9 H* (0-20) pg/ml Total Protein 6.9 (6.0-8.3) gm/dl Albumin 4.3 (3.4-5.0) gm/dl Globulin 2.6 (2.5-4.0) gm/dl Albumin/Globulin Ratio 1.7 (0.9-2) Procalcitonin 0.03 (0-0.5) ng/ml Imaging Data Radiologist's Impression: Chest X-Ray 04/01/25 19:13 Chest radiograph, one view History: Near syncope. Comparison: June 10, 2024. Findings: Left chest port catheter. This is unchanged. Calcified atherosclerotic changes of the thoracic aorta. Mild lordotic positioning. This limits portions of the exam. Pulmonary vasculature is within normal limits. Lungs are clear. No acute pleural disease. Impression: No findings to indicate source for patient's symptoms. Consider lateral view. Electronically signed by Peter Iverson 04-01-2025 8:45 PM MDM Narrative Patient was seen and evaluated as above in room A02. Review was performed of nursing notes and vital signs. I did review pertinent previous visits and patient history. After obtaining a thorough history and physical examination the above work up was performed. Patient presents to us today for evaluation of a near syncopal event that occurred earlier today around 1430 HRS. Patient notes overall resolution of most of the symptoms but is still feeling overall weak. This is generalized in nature, not unilateral and there is no focal neurologic deficit. No reported trauma or injury. No chest pain or shortness of breath. EKG per my interpretation reveals sinus tachycardia with first-degree AV block at a rate of 108 bpm. QTc 444. QRS 78. No ST elevation on this rhythm tracing. Options of care were discussed with the patient. IV access was established. Labs were drawn. Leukocytosis 10.83. No anemia. No emergent metabolic disturbance. Hypercalcemia 10.4. Troponin returned elevated 63.9. Patient denies any chest pain or shortness of breath. Procalcitonin detectable but within normal range. Blood culture pending. At this time I do believe that further evaluation and management in the inpatient setting is warranted. Case discussed with the hospitalist service. Please refer to further documentation regarding his stay. GCS: 15 In the evaluation and treatment of this patient the following differential diagnoses were entertained: Dehydration, ACS, PE, CVA, TIA, among others Impression & Plan Near syncope, Elevated troponin Discharge Plan Visit Data Chief Complaint: Hypotension Stated Complaint: LIGHT HEADED BP ED Provider: Kyle Sheppard ED Midlevel Provider: August Del Cid Discharge Problem: Near syncope, Elevated troponin Patient Disposition: Admitted As Inpatient Condition: Good Forms Stand Alone Forms: My [facility] [employer] Prescriptions Prescriptions: No Action nitroglycerin [Nitrostat] 0.4 mg tablet, sublingual 0.4 mg sublingual Q5M PRN (Reason: Chest Pain) Rx Instructions: do not exceed 3 doses per episode aspirin [Adult Aspirin Regimen] 81 mg tablet,delayed release (DR/EC) 81 mg PO QAM tamsulosin 0.4 mg capsule 0.4 mg PO QAM metformin 500 mg Tablet 1,000 mg PO BID simvastatin 40 mg Tablet 40 mg PO HS garlic 1,000 mg Capsule 1,000 mg PO QAM cyanocobalamin (vitamin B-12) 500 mcg Tablet 500 mcg PO QAM allopurinol 300 mg Tablet 300 mg PO HS metoprolol succinate 25 mg Tablet Extended Release 24 Hr 12.5 mg PO DAILY ascorbic acid (vitamin C) [Vitamin C] 500 mg Tablet Extended Release 500 mg PO QAM coenzyme Q10 [Co Q-10] 100 mg Capsule 100 mg PO QAM Probiotic 3 billion cell Capsule 6,000 mmu cells PO QAM Rx Instructions: administer with a meal/GUMMIES prednisone 5 mg Tablet 5 mg PO BID Patient Comments: new rx, will start today calcium carbonate 600 mg calcium (1,500 mg) Tablet 1,200 mg PO QAM loratadine [Claritin] 10 mg Tablet 10 mg PO QAM abiraterone [Zytiga] 250 mg Tablet 1,000 mg PO QAM Rx Instructions: must be taken on empty stomach, at least 1 hr before or 2 hrs after a meal/food gabapentin 300 mg capsule 300 mg PO TID PRN (Reason: Pain) glucosamine-chondroitin [Osteo Bi-Flex] 250-200 mg Tablet 2 tab PO QAM Rx Instructions: give after food/meal Ozempic 0.25 mg or 0.5 mg (2 mg/3 mL) pen injector 0.5 mg SUBCUT WK Rx Instructions: SUNDAYS (DME) blood-glucose meter [OneTouch Verio Flex meter] [facility] [place] See Rx Instructions .Route Qty: 1 0RF Rx Instructions: daily (DME) OneTouch Verio test strips Strip See Rx Instructions .Route Qty: 100 0RF Rx Instructions: daily (DME) lancing device with lancets [A[employer] Delica Plus Lanc Dev] Kit See Rx Instructions .Route Qty: 1 0RF Rx Instructions: daily Referrals Referrals: Niyah Bonilla DO [Primary Care Provider] -
--- NOTE | 2025-04-01 20:29 | Emergency Department Note ---
ED Visit Note I was consulted by the Advanced Practice Provider August Del Cid PA-C. I performed a substantive portion of the visit including all aspects of medical decision making. .
--- NOTE | 2025-04-01 20:46 | XRay Report ---
Chest radiograph, one view History: Near syncope. Comparison: June 10, 2024. Findings: Left chest port catheter. This is unchanged. Calcified atherosclerotic changes of the thoracic aorta. Mild lordotic positioning. This limits portions of the exam. Pulmonary vasculature is within normal limits. Lungs are clear. No acute pleural disease. Impression: No findings to indicate source for patient's symptoms. Consider lateral view. Electronically signed by Peter Iverson 04-01-2025 8:45 PM
[2025-04-01 20:58] LABS: Magnesium 1.7 mg/dl (1.7-2.4)
--- NOTE | 2025-04-01 21:01 | History & Physical Report ---
Date of Service April 01, 2025 Assessment & Plan (1) Near syncope: (2) Elevated troponin: (3) Diabetes mellitus, type 2: (4) Hypertension: (5) Hyperlipidemia: (6) CAD (coronary artery disease): (7) Prostate cancer metastatic to bone: Plan: HPI, ROS, PE, med rec completed by Zeinab Blas PA-C Assessment and Plan per Dr Orozco. See addendum. History of Present Illness Chief Complaint: lightheadedness Primary Care Provider: Niyah Bonilla DO Patient is 79-year-old male with PMH DM II, HTN, HLD, CAD, prostate cancer with bone metastasis s/p chemo, radiation, history neuropathy from chemo presented to ER with complaint of lightheadedness today. Patient states today was standing in kitchen when he felt lightheaded and states fell back into the cabinets. Denies hitting his head. He reports his assisted him to the living room to sit in the chair. Upon sitting in the chair patient felt like his vision "was cloudy". reports took his blood pressure and was 135/53. Patient denies any chest pain, shortness of breath. Denies LOC. Patient reports chronic BLE edema with right leg greater than left. Uses compression hose. Is on chronic prednisone. States started Ozempic one month ago. States is overall eating less. States this morning started with sore throat. Chronic rhinorrhea and feels is at baseline. Denies fever/chills, diaphoresis, N/V/D/C, GRANT, neck pain, CP, SOB, orthopnea, palpitations, cough, choking, otalgia, abdominal pain, extremity weakness, rashes, urinary symptoms. Denies ill contacts. Allergies Allergy/AdvReac Type Severity Reaction Status Date / Time chlorhexidine Allergy Mild rash Verified 04/01/25 20:12 metronidazole Allergy Mild Rash Verified 04/01/25 20:12 omeprazole Allergy Mild itch Verified 04/01/25 20:12 Home Medications Medication Instructions Recorded Confirmed Type allopurinol 300 mg tablet 300 mg PO DAILY 05/29/22 04/01/25 History ascorbic acid (vitamin C) 500 mg 500 mg PO QAM 05/29/22 04/01/25 History tablet,extended release (Vitamin C ER) coenzyme Q10 100 mg capsule (Co 100 mg PO QAM 05/29/22 04/01/25 History Q-10) cyanocobalamin (vitamin B-12) 500 500 mcg PO QAM 05/29/22 04/01/25 History mcg tablet garlic 1,000 mg capsule 1,000 mg PO QAM 05/29/22 04/01/25 History lactobacillus combination no.4 3 6,000 mmu cells PO QAM 05/29/22 04/01/25 History billion cell capsule (Probiotic) metformin 500 mg tablet 1,000 mg PO BID 05/29/22 04/01/25 History metoprolol succinate 25 mg 12.5 mg PO DAILY 05/29/22 04/01/25 History tablet,extended release 24 hr simvastatin 40 mg tablet 40 mg PO HS 05/29/22 04/01/25 History aspirin 81 mg tablet,delayed 81 mg PO QAM 04/25/23 04/01/25 History release (Adult Aspirin Regimen) tamsulosin 0.4 mg capsule 0.4 mg PO QAM 04/25/23 04/01/25 History calcium carbonate 1,200 mg PO QAM 06/27/23 04/01/25 History prednisone 5 mg tablet 5 mg PO BID 06/27/23 04/01/25 History nitroglycerin 0.4 mg sublingual 0.4 mg sublingual Q5M PRN Chest 07/05/23 04/01/25 History tablet (Nitrostat) Pain abiraterone 250 mg tablet (Zytiga) 1,000 mg PO QAM 10/01/23 04/01/25 History loratadine 10 mg tablet (Claritin) 10 mg PO QAM 10/01/23 04/01/25 History blood sugar diagnostic (OneTouch #100 ea 06/12/24 Rx Verio test strips) blood-glucose meter (OneTouch #1 ea 06/12/24 Rx Verio Flex Meter) lancing device with lancets kit #1 ea 06/12/24 Rx (OneTouch Delica Plus Lancing Device kit) glucosamine-chondroitin 250 mg-200 2 tab PO QAM 04/01/25 04/01/25 History mg tablet semaglutide 0.25 mg or 0.5 mg (2 0.5 mg subcut WK 04/01/25 04/01/25 History mg/3 mL) subcutaneous pen injector (Ozempic) Past Med/Surg History Problem List Elevated troponin (Acute) Near syncope (Acute) Immunosuppression due to chronic steroid use INA (acute kidney injury) DVT prophylaxis History of prostate cancer Diabetes mellitus Pneumonia (Acute) Septic shock (Acute) Prostate cancer metastatic to bone (Chronic) Bladder stone BPH NOS w ur obs/LUTS Elevated PSA 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 currently receiving chemotherapy. Hx of gout Diverticular disease h/o diverticulitis last episode 2 yrs ago History of skin cancer L forearm and L side of neck, BCC and SCC, removed Surgical History Hx of cataract surgery left Nausea and vomiting after administration of anesthetic agent H/O cystoscopy Cystoscopy with bladder stone evacuation Port-A-Cath in place (06/28/23) Insertion Access Port with Fluoroscopy, Left(Left) - Ashwin Matthews MD, FACS [employer] H/O prostate biopsy History of knee replacement (~2021) left S/P right inguinal hernia repair (08/17/09) Repair right direct inguinal hernia with mesh reinforcement. Dr. Matthews 08/17/09 History of colonoscopy (~2019) Hx of inguinal hernia repair (05/18/15) Laparoscopic repair of left indirect inguinal hernia and excision lipoma of the cord 05/18/15 Dr. Matthews Hx of umbilical hernia repair (12/02/99) Repair incarcerated umbilical hernia Dr. Matthews History of appendectomy (~1998) History of tooth extraction History of heart artery stent January 2012 > 1 stent LAD @ [facility] (followed by Dr. Irizarry) Family History Mother Diabetes Heart disease Hypertension Stroke Father Cancer Lung Other No family history of adverse response to anesthesia Social History Smoking Status: Never smoker packs per day: 2; Second Hand Exposure: No; Do You Dip or Chew Tobacco: No; Hx Alcohol Use: No Hx Substance Use: No Preferred Language: [place] Communication Ability: Effective Level Vial Grinder Required: No Beliefs That Will Affect Care: None marital status: Current Living Situation: Spouse current occupational status: retired How many Children do You have: 2 Feels Safe at Home: Yes Diet: regular during the past year weight has: remained stable Assistive Devices: Cane and Glasses Review of Systems Review of Systems: All systems reviewed & are unremarkable except as noted in HPI & below Physical Exam Physical Exam: General: no distress, overweight elderly male Head: normocephalic, atraumatic Eyes: conjunctiva non-injected, anicteric ENT: normal inspection external ears, nose, mucous membranes moist, pharynx mildly erythematous without exudate Neck: supple, trachea midline, non-tender Lungs: clear, no respiratory distress, no wheezing/rhonchi/rales CV: RRR, no murmur, trace pretibial edema BLE Abd: normal BS, soft, non-tender Ext: no cyanosis, no calf tenderness Neuro: A&O x 3, no focal deficits noted, normal affect Skin: warm, dry Results & Data Results & Data Vital Signs (Past 12 Hours) Vital Signs Temp Pulse Pulse Resp BP BP Pulse Ox 04/01/25 19:10 90 18 140/94 100 04/01/25 15:36 36.1 C L 116 H 18 131/83 96 O2 Del Method 04/01/25 19:10 Room Air 04/01/25 15:36 Room Air Laboratory Results Short CBC 04/01/25 Range/Units 16:06 WBC 10.83 H (4.8-10.8) K/ul Hgb 14.2 (14.0-18.0) g/dl Hct 44.2 (42.0-52.0) % Plt Count 216 (130-400) K/uL BMP 04/01/25 16:06 Sodium 139 Potassium 4.7 Chloride 100 Carbon Dioxide 27 BUN 18 Creatinine 1.03 Glucose 164 H Calcium 10.4 H Liver Function 04/01/25 Range/Units 16:06 Total Bilirubin 1.3 H (0.2-1.0) mg/dl AST 22 (13-39) U/L ALT 23 (7-52) U/L Alkaline Phosphatase 62 (34-104) U/L Albumin 4.3 (3.4-5.0) gm/dl Diagnostic Findings Chest X-Ray 04/01/25 19:13 Chest radiograph, one view History: Near syncope. Comparison: June 10, 2024. Findings: Left chest port catheter. This is unchanged. Calcified atherosclerotic changes of the thoracic aorta. Mild lordotic positioning. This limits portions of the exam. Pulmonary vasculature is within normal limits. Lungs are clear. No acute pleural disease. Impression: No findings to indicate source for patient's symptoms. Consider lateral view. Electronically signed by Peter Iverson 04-01-2025 8:45 PM Supervising Physician Co-Signing Physician Notes IM ATTENDING : Patient seen and examined. History obtained from patient and records. Concur with salient points upon review of preceding documentation by Ms. Zeinab Blas PA-C. I take responsibility for plan of care below. FINAL ASSESSMENT AND PLAN as follows : Near syncope Rule out orthostasis Rule out viral illness given sore throat symptoms Possible clinical dehydration given hypercalcemia and hemoconcentration on blood work Mild hypercalcemia noted on outpatient lab draws on review Troponin elevation likely from tachycardia CAD status post stent Mild MR/trace TR (TTE 2024) Hypertension, stable Hyperlipidemia on statin Rx DM2 on oral medications, suboptimal control as of recent hemoglobin A1c of 9.1 last January 2025 Metastatic prostate cancer status post chemoradiation, currently on Zytiga and steroid Rx, patient [place] [facility] [place] Chronic anemia, hemoglobin better than baseline likely secondary to hemoconcentration Past tobacco abuse OBS Admit to med/tele Check orthostatic vitals [employer] respiratory panel PCR NSS for hypercalcemia, check intact PTH Hold calcium supplement for now Follow troponin Basal bolus insulin, ISS BG goal 110-140, carb count coverage DVT prophylaxis per Lovenox subcu Full code I spent a total of 30 minutes coordinating, documenting, and providing care for this patientexcludingtime spent by another provider/QHP. Text document was generated using [employer] voice recognition software. It may contain grammatical or spelling errors. Kindly contact undersigned for clarification of any documentation item in question.
[2025-04-01] MEDS ORDERED: PROMETHAZINE 6.25 MG/50.25 ML BAG IV PRN (22:15)
[2025-04-01] MEDS ORDERED: ACETAMINOPHEN 325 MG TAB PO PRN (22:15)
[2025-04-01 23:13] LABS: Appearance Urine Clear (Clear); Bacteria Urine Automated None Seen (None Seen); Cast Urine Automated 0-2 /lpf (0-2); Epithelial Cell Urine Auto 0-2 /hpf (0-2); Glucose Urine UA Negative (Negative); RBC Urine Automated 0-2 /hpf (0-2); WBC Urine Automated 0-5 /hpf (0-5)
[2025-04-01 23:17] LABS: Chlamydia pneumoniae PCR Not Detected (NotDetected); Coronavirus 229E PCR Not Detected (NotDetected); Coronavirus CoV-2 (COVID19)PCR Not Detected (NotDetected); Coronavirus HKU1 PCR Not Detected (NotDetected); Coronavirus NL63 PCR Not Detected (NotDetected); Coronavirus OC43PCR Not Detected (NotDetected); Human Metapneumovirus PCR Not Detected (NotDetected); Parainfluenza Virus 1 PCR Not Detected (NotDetected); Parainfluenza Virus 2 PCR Not Detected (NotDetected); Parainfluenza Virus 3 PCR Not Detected (NotDetected); Parainfluenza Virus 4 PCR Not Detected (NotDetected); Respiratory Syncytial VirusPCR Not Detected (NotDetected); Rhinovirus/Enterovirus PCR DETECTED (NotDetected)
[2025-04-01] MEDS ORDERED: GLUCOSE 40% GEL 15 GM TUBE PO PRN (23:30)
[2025-04-01] MEDS ORDERED: DEXTROSE 50% 50 ML SYRINGE IV PRN (23:30)
[2025-04-01] MEDS ORDERED: CARBOHYDRATES FOR HYPOGLYCEMIA PO PRN (23:30)
[2025-04-01] MEDS ORDERED: GLUCAGON FOR INJ 1 MG VIAL SQ PRN (23:30)
[2025-04-01] MEDS ORDERED: GLUCOSE 10 TAB/TUBE PO PRN (23:30)
[2025-04-01] MEDS: LANTUS PER UNIT CHARGE SQ SCH (23:57)
[2025-04-01] MEDS: MAGNESIUM SULFATE / D5W 1 GM/100 ML BAG IV SCH (23:58)
[2025-04-01] MEDS: SIMVASTATIN 40 MG TAB PO STA (23:58)
[2025-04-02] MEDS ORDERED: GLUCOSE 10 TAB/TUBE PO PRN (00:22)
[2025-04-02] MEDS ORDERED: CARBOHYDRATES FOR HYPOGLYCEMIA PO PRN (00:22)
[2025-04-02] MEDS ORDERED: GLUCOSE 40% GEL 15 GM TUBE PO PRN (00:22)
[2025-04-02] MEDS ORDERED: GLUCAGON FOR INJ 1 MG VIAL SQ PRN (00:22)
[2025-04-02] MEDS ORDERED: DEXTROSE 50% 50 ML SYRINGE IV PRN (00:22)
[2025-04-02] MEDS: SODIUM CHLORIDE 0.9% 1,000 ML IV ONE ×2 (00:26→02:53)
[2025-04-02] MEDS ORDERED: METOPROLOL SUCC 25MG EXT REL TAB PO SCH ×2 (00:30→09:00)
[2025-04-02] MEDS: INSULIN ASPART PER UNIT CHARGE SC SCH (01:31)
[2025-04-02 01:32] LABS: Calcium 9.9 mg/dl (8.6-10.3)
[2025-04-02] MEDS: Patient's HEIGHT &/or WEIGHT Needed STA (01:33)
[2025-04-02] MEDS: METOPROLOL TARTRATE 1 MG/ML VIAL IV STA (01:40)
[2025-04-02 05:13] LABS: Hematocrit (blood only) 38.4 % (42.0-52.0); Hemoglobin 12.9 g/dl (14.0-18.0); Immature Granulocytes # (auto) 0.04 K/uL (0.01-0.20); Immature Granulocytes % (auto) 0.4 %; Mean Corpuscular Hemoglobin 31.4 pg (25.0-34.0); Mean Corpuscular Volume 93.4 fL (80.0-100.0); Platelet Count 196 K/uL (130-400); RDW Standard Deviation 50.7 fL (36.4-46.3); Red Blood Count 4.11 M/uL (4.70-6.10); White Blood Count 9.33 K/ul (4.8-10.8)
[2025-04-02 05:33] LABS: Anion Gap 9.0 (3-11); Blood Urea Nitrogen 16.0 mg/dl (6-23); Calcium 9.0 mg/dl (8.6-10.3); Carbon Dioxide 25.0 mmol/L (21-32); Chloride 107.0 mmol/L (98-107); Creatinine Clr Calc Pharmacy 80.4 ml/min; Glucose 143.0 mg/dl (70-99(Fasting)); Potassium 4.1 mmol/L (3.5-5.1); Sodium 141.0 mmol/L (136-145)
[2025-04-02] MEDS ORDERED: CALCIUM PO SCH (09:00)
[2025-04-02] MEDS ORDERED: CALCIUM CARBONATE 600 MG PO SCH (09:00)
[2025-04-02] MEDS: ASPIRIN 81 MG ECTAB PO SCH (09:37)
[2025-04-02] MEDS: LORATADINE 10 MG TAB PO SCH (09:37)
[2025-04-02] MEDS: ENOXAPARIN INJ 40 MG/0.4 ML SYR SQ SCH (09:37)
[2025-04-02] MEDS: CYANOCOBALAMIN (B-12) 500 MCG TABLET PO SCH (09:37)
[2025-04-02] MEDS: ADVANCED PROBIOTIC 625 MG CAPSULE PO SCH (09:37)
[2025-04-02] MEDS: METOPROLOL SUCC 25MG EXT REL TAB PO SCH (09:37)
[2025-04-02] MEDS: TAMSULOSIN HCL 0.4 MG CAP PO SCH (09:38)
[2025-04-02] MEDS: ABIRATERONE ACETATE PO SCH (10:48)
[2025-04-02 11:04] VITALS: PULSE 78; RESP 16; TEMP 97.3; O2SAT 96
--- NOTE | 2025-04-02 13:10 | Cardiology Consultation ---
Date of Consultation April 02, 2025 Assessment & Plan (1) Near syncope: (2) Elevated troponin: Patient with noted near syncopal episode in the setting of having performed physical labor with evolving enterovirus/rhinovirus illness (PCR positive). Notes mild nasal congestion and sore throat. Afebrile. SARS-CoV-2 screen negative. Influenza screen negative. Patient with mild troponin elevation. No ischemic changes on EKG. No symptoms to suggest angina. Telemetry reveals sinus rhythm with having been in sinus tachycardia on presentation and this has improved overnight last night having received IV fluids. Recommend ongoing supportive care for his viral respiratory syndrome. Agree with IV fluids. Continue prior to hospital treatment with aspirin 81 mg daily, metoprolol succinate 12.5 mg daily, simvastatin 40 mg daily. A limited echo for assessment of regional wall motion abnormalities requested. I spent a total of 60 minutes on the date of service in preparation, delivery, and documentation of the care provided to this patient, excluding any time spent in the performance of separately billed services. Dilma Hoover DO History of Present Illness Attending Physician: Jeremias Lam MD History of Present Illness Jayden Hardwick is a 79 year old male seen in cardiology consultation per the request of Dr Lam for the evaluation of near syncope with noted elevation in serial high sensitivity troponin levels. Patient's spouse was at the bedside during my evaluation. Patient describes that yesterday he was power washing a garage floor which he had plan to paint and felt will during this activity with the exception of feeling like a cold was coming along with stuffy nose and mild sore throat. The patient was subsequently standing in his kitchen and felt lightheaded and lost postural tone leaning back into the cabinets he did not go to the ground. His assisted him to sit in the living room chair. His vision felt cloudy. His spouse took his blood pressure and it was reportedly normal at 135/53. Patient denies having had chest discomfort or shortness of breath at the time of the event. He denies any chest discomfort now, and notes no new or worsening chest discomfort or shortness of breath recently. His past cardiac history is notable for chronic exertional class I-II angina, but the patient states that he has been doing well from this standpoint recently. A mild troponin elevation has been noted on his laboratory studies and he has tested positive for rhinovirus. Past Cardiac History: 1.Atherosclerotic coronary disease, 2-vessel, status post 2-vessel coronary intervention January 2012, with drug-eluting stent to the left anterior descending and balloon angioplasty of the ramus intermedius. -Class I-II angina pectoris, stable. 2.Negative DSE, 04/2022 3.Hypertension. 4.Hyperlipidemia. 5.Borderline hyperglycemia 6.Metastatic prostate carcinoma with skeletal metastatic disease involving the right humerus, T7, right acetabular sclerotic lesions, noted on PET scan 10/16/2024, stable findings noted at that time Allergies Allergy/AdvReac Type Severity Reaction Status Date / Time chlorhexidine Allergy Mild rash Verified 04/01/25 20:12 metronidazole Allergy Mild Rash Verified 04/01/25 20:12 omeprazole Allergy Mild itch Verified 04/01/25 20:12 Home Medications Medication Instructions Recorded Confirmed Type allopurinol 300 mg tablet 300 mg PO DAILY 05/29/22 04/01/25 History ascorbic acid (vitamin C) 500 mg 500 mg PO QAM 05/29/22 04/01/25 History tablet,extended release (Vitamin C ER) coenzyme Q10 100 mg capsule (Co 100 mg PO QAM 05/29/22 04/01/25 History Q-10) cyanocobalamin (vitamin B-12) 500 500 mcg PO QAM 05/29/22 04/01/25 History mcg tablet garlic 1,000 mg capsule 1,000 mg PO QAM 05/29/22 04/01/25 History lactobacillus combination no.4 3 6,000 mmu cells PO QAM 05/29/22 04/01/25 History billion cell capsule (Probiotic) metformin 500 mg tablet 1,000 mg PO BID 05/29/22 04/01/25 History metoprolol succinate 25 mg 12.5 mg PO DAILY 05/29/22 04/01/25 History tablet,extended release 24 hr simvastatin 40 mg tablet 40 mg PO HS 05/29/22 04/01/25 History aspirin 81 mg tablet,delayed 81 mg PO QAM 04/25/23 04/01/25 History release (Adult Aspirin Regimen) tamsulosin 0.4 mg capsule 0.4 mg PO QAM 04/25/23 04/01/25 History calcium carbonate 1,200 mg PO QAM 06/27/23 04/01/25 History prednisone 5 mg tablet 5 mg PO BID 06/27/23 04/01/25 History nitroglycerin 0.4 mg sublingual 0.4 mg sublingual Q5M PRN Chest 07/05/23 04/01/25 History tablet (Nitrostat) Pain abiraterone 250 mg tablet (Zytiga) 1,000 mg PO QAM 10/01/23 04/01/25 History loratadine 10 mg tablet (Claritin) 10 mg PO QAM 10/01/23 04/01/25 History blood sugar diagnostic (OneTouch #100 ea 06/12/24 Rx Verio test strips) blood-glucose meter (OneTouch #1 ea 06/12/24 Rx Verio Flex Meter) lancing device with lancets kit #1 ea 06/12/24 Rx (Mems-IDTouch Delica Plus Lancing Device kit) glucosamine-chondroitin 250 mg-200 2 tab PO QAM 04/01/25 04/01/25 History mg tablet semaglutide 0.25 mg or 0.5 mg (2 0.5 mg subcut WK 04/01/25 04/01/25 History mg/3 mL) subcutaneous pen injector (Ozempic) Patient History Medical History Prostate cancer completed radiation therapy. currently receiving chemotherapy. Hx of gout Diverticular disease h/o diverticulitis last episode 2 yrs ago History of skin cancer L forearm and L side of neck, BCC and SCC, removed Surgical History Hx of cataract surgery left Nausea and vomiting after administration of anesthetic agent H/O cystoscopy Cystoscopy with bladder stone evacuation Port-A-Cath in place (06/28/23) Insertion Access Port with Fluoroscopy, Left(Left) - Ashwin Matthews MD, FACS [employer] H/O prostate biopsy History of knee replacement (~2021) left S/P right inguinal hernia repair (08/17/09) Repair right direct inguinal hernia with mesh reinforcement. Dr. Matthews 08/17/09 History of colonoscopy (~2019) Hx of inguinal hernia repair (05/18/15) Laparoscopic repair of left indirect inguinal hernia and excision lipoma of the cord 05/18/15 Dr. Matthews Hx of umbilical hernia repair (12/02/99) Repair incarcerated umbilical hernia Dr. Matthews History of appendectomy (~1998) History of tooth extraction History of heart artery stent January 2012 > 1 stent LAD @ [facility] (followed by Dr. Irizarry) Family History Mother Diabetes Heart disease Hypertension Stroke Father Cancer Lung Other No family history of adverse response to anesthesia Social History Smoking Status: Former smoker packs per day: 2; Second Hand Exposure: No; Do You Dip or Chew Tobacco: No; Hx Alcohol Use: No Hx Substance Use: No Preferred Language: Lao Communication Ability: Effective Balloon Tester Required: No Beliefs That Will Affect Care: None marital status: Current Living Situation: Spouse current occupational status: retired How many Children do You have: 2 Other Information That Helps Us Care for You: No Feels Safe at Home: Yes Safety Concerns: Feels Safe At This Time Diet: regular during the past year weight has: remained stable Assistive Devices: Cane and Scooter/Electric Scooter Review of Systems Review of Systems: All systems reviewed & are unremarkable except as noted in HPI & below Physical Exam Constitutional: WD/WN, vitals as above Eyes: PERRL, conjunctivae normal, anicteric sclerae Neck: trachea midline Cardiovascular: RRR, no murmur, no edema Gastrointestinal (Abdomen): normal bowel sounds, soft, nontender, no hepatosplenomegaly Neurologic: PERRL, EOMI, accommodation nl, no face palsy, no dysarthria Psychiatric: A+Ox3, euthymic affect Results & Data Vital Signs (Past 12 Hours) Vital Signs Temp Pulse Pulse Resp BP BP Pulse Ox 04/02/25 11:01 36.3 C L 78 16 135/80 96 04/02/25 08:11 36.6 C 80 20 114/70 95 04/02/25 07:29 78 04/02/25 04:00 36.8 C 83 18 111/69 93 04/02/25 03:22 04/02/25 03:22 36.6 C 105 H 18 145/88 H 97 04/02/25 01:40 89 109/68 O2 Del Method 04/02/25 11:01 Room Air 04/02/25 08:11 Room Air 04/02/25 07:29 04/02/25 04:00 Room Air 04/02/25 03:22 Room Air 04/02/25 03:22 Room Air 04/02/25 01:40 Laboratory Results Cardiac Enzymes 04/01/25 04/01/25 04/02/25 Range/Units 16:06 19:32 01:02 AST 22 (13-39) U/L Troponin I High Sens 63.9 H* 104.9 H* D (0-20) pg/ml 04/02/25 04/02/25 Range/Units 04:51 04:51 AST (13-39) U/L Troponin I High Sens 122.9 H* Cancelled (0-20) pg/ml CBC 04/01/25 04/02/25 Range/Units 16:06 04:51 WBC 10.83 H 9.33 (4.8-10.8) K/ul RBC 4.68 L 4.11 L (4.70-6.10) M/uL Hgb 14.2 12.9 L (14.0-18.0) g/dl Hct 44.2 38.4 L (42.0-52.0) % Plt Count 216 196 (130-400) K/uL Neut # (Auto) 8.47 H 7.64 H (1.40-6.50) K/uL Lymph # (Auto) 1.56 0.97 L (1.20-3.40) K/uL [place] # (Auto) 0.70 H 0.63 H (0.11-0.59) K/uL Eos # (Auto) 0.02 0.03 (0.00-0.50) K/uL Baso # (Auto) 0.03 0.02 (0.00-0.20) K/uL Comprehensive Metabolic Panel 04/01/25 04/02/25 04/02/25 Range/Units 16:06 01:02 04:51 Sodium 139 141 (136-145) mmol/L Potassium 4.7 4.1 (3.5-5.1) mmol/L Chloride 100 107 (98-107) mmol/L Carbon Dioxide 27 25 (21-32) mmol/L BUN 18 16 (6-23) mg/dl Creatinine 1.03 0.85 (0.6-1.4) mg/dl Glucose 164 H 143 H (70-99(Fasting)) mg/dl Calcium 10.4 H 9.9 9.0 (8.6-10.3) mg/dl AST 22 (13-39) U/L ALT 23 (7-52) U/L Alkaline Phosphatase 62 (34-104) U/L Total Protein 6.9 (6.0-8.3) gm/dl Albumin 4.3 (3.4-5.0) gm/dl Intake and Output 04/01/25 04/02/25 04/02/25 22:59 06:59 14:59 Intake Total 1196.667 / 1196.667 Balance 1196.667 / 1196.667 Intake: IV 1196.667 / 1196.667 Magnesium Sulfate / D5w 1 gm In 196.667 / 196.667 100 ml @ 50 mls/hr IV Q2H [facility] Rx#:[id number] Sodium Chloride 0.9% 1,000 ml @ 1000 / 1000 500 mls/hr IV .Q2H ONE Rx#: [id number] Other: Weight 92.1 kg Weight Measurement Method Standing Scale Diagnostic Findings EKG performed 04/01/2025 and interpreted independently revealed sinus tachycardia 108 bpm with first-degree AV block, no significant repolarization abnormalities noted. Repeat tracing performed 04/02/2025 at 11:23 AM (reviewed via the [employer] with application). And interpreted independently revealed sinus rhythm at 72 bpm, first-degree AV block is present. No significant repolarization abnormalities. Compared to the previous tracing, sinus rhythm has replaced sinus tachycardia and the rate is decreased by 36 bpm. PG Care Time/CCT Total # of Minutes Spent Total Time Spent with Patient: Total time spent is greater than 50% in coordination of care (as documented) at patient's floor/unit and/or counseling patient: [place] [address] IN/OBS CONSULT LVL 4,60M Patient Type Established History Comprehensive Exam Comprehensive Medical Decision Making High Complexity Diagnoses Near syncope R55 Elevated troponin R79.89 Time Spent (min) 60
--- NOTE | 2025-04-02 15:28 | Discharge Summary ---
Date of Service April 02, 2025 Admission HPI Per Admitting Provider Patient is 79-year-old male with PMH DM II, HTN, HLD, CAD, prostate cancer with bone metastasis s/p chemo, radiation, history neuropathy from chemo presented to ER with complaint of lightheadedness today. Patient states today was standing in kitchen when he felt lightheaded and states fell back into the cabinets. Denies hitting his head. He reports his assisted him to the living room to sit in the chair. Upon sitting in the chair patient felt like his vision "was cloudy". reports took his blood pressure and was 135/53. Patient denies any chest pain, shortness of breath. Denies LOC. Patient reports chronic BLE edema with right leg greater than left. Uses compression hose. Is on chronic prednisone. States started Ozempic one month ago. States is overall eating less. States this morning started with sore throat. Chronic rhinorrhea and feels is at baseline. Denies fever/chills, diaphoresis, N/V/D/C, GRANT, neck pain, CP, SOB, orthopnea, palpitations, cough, choking, otalgia, abdominal pain, extremity weakness, rashes, urinary symptoms. Denies ill contacts. Admission Exam Per Admitting Provider General: no distress, overweight elderly male Head: normocephalic, atraumatic Eyes: conjunctiva non-injected, anicteric ENT: normal inspection external ears, nose, mucous membranes moist, pharynx mildly erythematous without exudate Neck: supple, trachea midline, non-tender Lungs: clear, no respiratory distress, no wheezing/rhonchi/rales CV: RRR, no murmur, trace pretibial edema BLE Abd: normal BS, soft, non-tender Ext: no cyanosis, no calf tenderness Neuro: A&O x 3, no focal deficits noted, normal affect Skin: warm, dry Principal Diagnosis Pre-syncope Elevated troponin Dehydration Discharge Exam General: overweight elderly male in NAD Head: normocephalic, atraumatic Eyes: conjunctiva non-injected, anicteric ENT: normal inspection external ears, nose, mucous membranes moist, pharynx mildly erythematous without exudate Neck: supple Lungs: clear, no respiratory distress, no wheezing/rhonchi/rales CV: RRR, no murmur, trace pretibial edema BLE Abd: normal BS, soft, non-tender Ext: no LE edema, moves extremities Neuro: A&O x 3, no focal deficits noted, normal affect Skin: warm, dry Discharge Data Allergies Allergy/AdvReac Type Severity Reaction Status Date / Time chlorhexidine Allergy Mild rash Verified 04/01/25 20:12 metronidazole Allergy Mild Rash Verified 04/01/25 20:12 omeprazole Allergy Mild itch Verified 04/01/25 20:12 Consultations 04/01/25 20:27 ED Decision to Admit Stat 04/02/25 09:01 Consult Cardiology Routine Hospital Course (1) Near syncope: (2) Elevated troponin: (3) Diabetes mellitus, type 2: (4) Hypertension: (5) Hyperlipidemia: (6) CAD (coronary artery disease): (7) Prostate cancer metastatic to bone: ASSESSMENT AND PLAN as follows : Near syncope Rule out orthostasis Rule out viral illness given sore throat symptoms- Biofire positive for rhino/enterovirus Possible clinical dehydration given hypercalcemia and hemoconcentration on blood work Mild hypercalcemia noted on outpatient lab draws on review Troponin elevation likely from tachycardia Pt received IVF and cardiology was consulted Pt feels much better, denies any dizziness, also denies any chest pain or shortness of breath Orthostatic VS obtained today after IVF, are negative Limited echo obtained - EF 55-60%, no regional wall motion abnormalities noted, there is no pericardial effusion, compared to previous echo from 08/2024 regional wall motion and LVEF are relatively unchanged. CAD status post stent Mild MR/trace TR (TTE 2024) Hypertension, stable Hyperlipidemia on statin Rx DM2 on oral medications, suboptimal control as of recent hemoglobin A1c of 9.1 last January 2025, Basal bolus insulin, ISS BG goal 110-140, carb count coverage Metastatic prostate cancer status post chemoradiation, currently on Zytiga and steroid Rx, patient [place] [facility] [place] Chronic anemia, hemoglobin better than baseline likely secondary to hemoconcentration Past tobacco abuse NSS for hypercalcemia, check intact PTH, Held calcium supplement Calcium 10.4 on admission, now 9.0. Follow up as outpt Total Time Total Time Spent Total Time Spent (In Minutes): 40 Discharge Plan Discharge Items Patient Disposition: Home - Self-Care Reason For Visit: WEAKNESS, TROP ELEV Discharge Diagnosis: Pre-syncope Elevated troponin Dehydration Condition on Discharge: Good Activity: Per Instructions section Non-emergency contact: Primary Care Provider Call non-emergency contact if: you have any medication questions and your symptoms worsen Follow-up/Referrals: Niyah Bonilla DO [Primary Care Provider] - (Date & Time 04/07/2025 10:00 AM Provider: Niyah Bonilla DO [facility] ) Diet: Carb Consistent or DM2 and Heart Healthy Addtl Attending Provider Instructions: Follow up with your primary care physician within 1 week. The appointment was scheduled for you for 04/07/2025. Make sure to stay well hydrated. No medication changes were made at this time. Pending Studies at Discharge: Yes Studies:: blood cultx results Stand-Alone Forms: My [facility] [employer], Smoking Cessation Medications and DC Order Prescriptions: Continued nitroglycerin [Nitrostat] 0.4 mg tablet, sublingual 0.4 mg sublingual Q5M PRN (Reason: Chest Pain) Rx Instructions: do not exceed 3 doses per episode aspirin [Adult Aspirin Regimen] 81 mg tablet,delayed release (DR/EC) 81 mg PO QAM tamsulosin 0.4 mg capsule 0.4 mg PO QAM metformin 500 mg Tablet 1,000 mg PO BID simvastatin 40 mg Tablet 40 mg PO HS garlic 1,000 mg Capsule 1,000 mg PO QAM cyanocobalamin (vitamin B-12) 500 mcg Tablet 500 mcg PO QAM allopurinol 300 mg Tablet 300 mg PO DAILY metoprolol succinate 25 mg Tablet Extended Release 24 Hr 12.5 mg PO DAILY ascorbic acid (vitamin C) [Vitamin C] 500 mg Tablet Extended Release 500 mg PO QAM coenzyme Q10 [Co Q-10] 100 mg Capsule 100 mg PO QAM Probiotic 3 billion cell Capsule 6,000 mmu cells PO QAM Rx Instructions: administer with a meal/GUMMIES prednisone 5 mg Tablet 5 mg PO BID Patient Comments: new rx, will start today calcium carbonate 600 mg calcium (1,500 mg) Tablet 1,200 mg PO QAM loratadine [Claritin] 10 mg Tablet 10 mg PO QAM abiraterone [Zytiga] 250 mg Tablet 1,000 mg PO QAM Rx Instructions: must be taken on empty stomach, at least 1 hr before or 2 hrs after a meal/food glucosamine-chondroitin [Osteo Bi-Flex] 250-200 mg Tablet 2 tab PO QAM Rx Instructions: give after food/meal Ozempic 0.25 mg or 0.5 mg (2 mg/3 mL) pen injector 0.5 mg SUBCUT WK Rx Instructions: SUNDAYS (DME) blood-glucose meter [OneTouch Verio Flex meter] [facility] [place] See Rx Instructions .Route Qty: 1 0RF Rx Instructions: daily (DME) OneTouch Verio test strips Strip See Rx Instructions .Route Qty: 100 0RF Rx Instructions: daily (DME) lancing device with lancets [OneTouch Delica Plus Lanc Dev] Kit See Rx Instructions .Route Qty: 1 0RF Rx Instructions: daily Discharge Orders: Discharge Order (Routine); Ordered 04/02/25 Ordered By: Jeremias Lam Admission Data Admit Date/Time: 04/01/25 21:20 Attending Provider: Jeremias Lam Admit Provider: Jayden Orozco Primary Care Provider: Niyah Bonilla Other Providers: Jayden Orozco; Main Hoover
[2025-04-02 15:38] VITALS: BP 145/88
[2025-04-02] MEDS ORDERED: SIMVASTATIN 40 MG TAB PO SCH (21:00)
--- NOTE | 2025-04-03 22:52 | Electrocardiogram Report ---
Test Reason : Blood Pressure : */* mmHG Vent. Rate : 108 BPM Atrial Rate : 108 BPM P-R Int : 210 ms QRS Dur : 78 ms QT Int : 332 ms P-R-T Axes : 19 11 35 degrees QTcB Int : 444 ms Sinus tachycardia with 1st degree A-V block Otherwise normal ECG When compared with ECG of 10-Jun-2024 11:16, No significant change was found Confirmed by Pk Gomez ([id number]) on 04/03/2025 10:51:50 PM Referred By: REFERRED SELF Confirmed By: Pk Gomez
--- NOTE | 2025-04-03 22:53 | Electrocardiogram Report ---
Test Reason : Blood Pressure : */* mmHG Vent. Rate : 72 BPM Atrial Rate : 72 BPM P-R Int : 208 ms QRS Dur : 84 ms QT Int : 378 ms P-R-T Axes : -1 -6 16 degrees QTcB Int : 413 ms Sinus rhythm with 1st degree A-V block Low voltage QRS Borderline ECG When compared with ECG of 01-Apr-2025 16:04, Vent. rate has decreased by 36 bpm Confirmed by Pk Gomez ([id number]) on 04/03/2025 10:53:11 PM Referred By: REFERRED SELF Confirmed By: Pk Gomez
== END 2025-04-02 16:06 | disposition home or self-care (01) | DRG 641 ==
LOC: ED 15:01 → 2N 21:20